=== PATIENT | male | born 1940 | race Caucasian/White ===

== ENCOUNTER 2016-10-31 14:17 | Emergency (ER) | payer OTHER ==
[~2016-10-31] VITALS: Ht 167.6 cm; Wt 72.6 kg
[~2016-10-31 14:17] MED LIST: ACET650T79; AMLO5TAB2; ASPI81CH43; FLUT250M9; HYDR-3678; METH2.5T3; OMEP20CA74; POTA10CA29; SIMV-8; TIOTCAP
[2016-10-31 15:33] LABS: Basophils # (auto) 0.1 uL; Basophils % (auto) 0.4 % (0.0-2.0); CONDITION Y; DEFINITIVE SEE PRINTOUT; Eosinophils # (auto) 0.1 uL; Eosinophils % (auto) 0.7 % (0.0-7.0); Hemoglobin 18.9 g/dL (13.5-17.5); Lymphocytes % (auto) 6.9 % (10.0-50.0); Mean Corpuscular Hemoglobin 34.1 pg (28.0-32.0); Mean Corpuscular Hgb Conc. 33.4 g/dL (32.0-36.0); Mean Corpuscular Volume 102.1 fL (80.0-100.0); Mean Platelet Volume 8.4 fL (7.4-10.4); Monocytes # (auto) 0.8 uL; Monocytes % (auto) 5.7 % (0.0-12.0); Neutrophils # (auto) 12.7 uL; Neutrophils % (auto) 86.3 % (37.0-80.0); Platelet Count (auto) 339 10^3/uL (140-450); Red Cell Distribution Width 15.1 % (11.6-16.0); SUSPECT SEE PRINTOUT; White Blood Cell 14.7 10^3/uL (4.4-10.8)
[2016-10-31 15:47] LABS: Hematocrit 56.6 % (41.0-53.0)
[2016-10-31 15:54] LABS: Albumin 3.5 g/dL (3.4-5.0); Alkaline Phosphatase 124 U/L (45-117); Anion Gap 7 (5-15); Aspartate Aminotransferase 47 U/L (15-37); BUN/Creatinine Ratio 23.9; Bilirubin, Total 1.2 mg/dL (0.2-1.0); Blood Urea Nitrogen 26 mg/dL (7-18); Calcium 9.6 mg/dL (8.5-10.1); Carbon Dioxide 26 mmol/L (21-32); Chloride 104 mmol/L (98-107); GFR African American 85 mL/min; GFR Non-African American 70 mL/min; Glucose 94 mg/dL (74-106); Potassium 3.5 mmol/L (3.5-5.1); Sodium 137 mmol/L (136-145); Total Protein 6.8 g/dL (6.4-8.2)
[2016-10-31 20:28] LABS: B-Type Natriuretic Peptide 27.58 pg/mL (0-100)
[2016-10-31 20:39] LABS: Temperature: 22.4 C (20.0-25.0)
[2016-10-31] MEDS ORDERED: ALBUTEROL SULF 2.5 MG/0.5ML(0.5%) NEB SOLN NEB ONE (22:00)
[2016-10-31] MEDS ORDERED: methylPREDNISolone SOD SUCC 125 MG/2 ML VL IV ONE (22:00)
[2016-10-31] MEDS ORDERED: IPRATROPIUM BROM 0.5 MG/2.5ML INH SOL NEB ONE (22:00)
[2016-10-31 22:59] VITALS: BP 137/98
== END 2016-10-31 23:02 | disposition home or self-care (01) ==
LOC: ER 14:17
DX: J44.1 Chronic obstructive pulmonary disease with (acute) exacerbation (principal); I12.9 Hypertensive chronic kidney disease with stage 1 through stage 4 chronic kidney disease, or unspecified chronic kidney disease; N18.9 Chronic kidney disease, unspecified; E78.5 Hyperlipidemia, unspecified; Z87.442 Personal history of urinary calculi
CPT/HCPCS: 36415; 71020; 80053; 83880; 84484; 85025; 93005; 94640; 96374; 99285; J2930

== ENCOUNTER 2018-09-22 22:49 | Emergency (ER) | payer OTHER ==
[~2018-09-22] VITALS: Ht 165.1 cm; Wt 68.0 kg
[~2018-09-22 22:49] MED LIST changes: +AMLO5TAB13; -AMLO5TAB2
[2018-09-22] MEDS ORDERED: ALBUTEROL SULF 2.5 MG/0.5ML(0.5%) NEB SOLN HHN ONE (23:30)
[2018-09-22] MEDS ORDERED: IPRATROPIUM BROM 0.5 MG/2.5ML INH SOL HHN ONE (23:30)
[2018-09-22] MEDS ORDERED: methylPREDNISolone SOD SUCC 125 MG/2 ML VL IV ONE (23:30)
[2018-09-22] MEDS ORDERED: PIPERACILLIN-TAZOB 3.375GM 100 ML IV ONE (23:30)
[2018-09-22 23:42] LABS: Hemoglobin 18.2 g/dL (13.5-17.5); Mean Corpuscular Volume 98.3 fL (80.0-100.0)
[2018-09-22 23:44] LABS: Hematocrit 55.7 % (41.0-53.0); Mean Corpuscular Hgb Conc. 32.6 g/dL (32.0-36.0); Platelet Count (auto) 441 10^3/uL (140-450); Red Blood Cells 5.67 10^6/uL (4.5-5.90); White Blood Cell 21.2 10^3/uL (4.4-10.8)
[2018-09-22 23:49] LABS: Band Neutrophils % (manual) 0; Basophils % (manual) 0 (0.0-2.0); Blast Cells 0; Eosinophils % (manual) 0 (0-7); Metamyelocytes % 0; Myelocytes % 0; Promyelocytes % 0; Reactive Lymphocytes 0
[2018-09-23 00:01] LABS: Albumin 3.8 g/dL (3.4-5.0); Anion Gap 10 (5-15); Blood Urea Nitrogen 38 mg/dL (7-18); Calcium 9.8 mg/dL (8.5-10.1); Carbon Dioxide 25 mmol/L (21-32); Chloride 105 mmol/L (98-107); Glucose 109 mg/dL (74-106); Magnesium 2.5 mg/dL (1.6-2.6); Potassium 4.9 mmol/L (3.5-5.1); Sodium 140 mmol/L (136-145)
[2018-09-23 00:03] LABS: Alanine Aminotransferase 87 U/L (16-61); Aspartate Aminotransferase 47 U/L (15-37); BUN/Creatinine Ratio 20.9; GFR African American 47 mL/min; GFR Non-African American 39 mL/min
[2018-09-23 00:08] LABS: Alkaline Phosphatase 117 U/L (45-117); Bilirubin, Total 0.5 mg/dL (0.2-1.0); Total Protein 8.1 g/dL (6.4-8.2)
[2018-09-23 00:20] LABS: Lymphocytes % (manual) 5 (10.0-50.0); Monocytes % (manual) 4 (0-12)
[2018-09-23] MEDS ORDERED: SODIUM CHLORIDE 0.9% 1,000 ML IV ONE (00:30)
[2018-09-23] MEDS ORDERED: ALBUTEROL SULF 2.5 MG/0.5ML(0.5%) NEB SOLN NEB ONE ×2 (02:00→07:00)
[2018-09-23] MEDS ORDERED: IPRATROPIUM BROM 0.5 MG/2.5ML INH SOL NEB ONE ×2 (02:00→07:00)
[2018-09-23 03:13] LABS: Urine Bacteria NONE SEEN /hpf (None Seen); Urine Blood Negative /uL (Negative); Urine Hyaline Cast FEW /lpf (0 - 2); Urine Specific Gravity 1.012 (1.001-1.035); Urine WBC <1 /hpf (0 - 3)
[2018-09-23] MEDS ORDERED: SODIUM CHLORIDE 0.9% 500 ML IV ONE (07:00)
[2018-09-23] MEDS ORDERED: LEVOFLOXACIN 500MG 100 ML IV ONE (07:00)
[2018-09-23] MEDS ORDERED: methylPREDNISolone SOD SUCC 125 MG/2 ML VL IV SCH (08:00)
[2018-09-23 08:22] VITALS: BP 139/90
== END 2018-09-23 08:23 | disposition home or self-care (01) ==
LOC: EDBD 22:49 → EDUNIT# 22:49 → ER 23:02
DX: J44.0 Chronic obstructive pulmonary disease with (acute) lower respiratory infection (principal); R91.1 Solitary pulmonary nodule; R06.03 Acute respiratory distress; I12.9 Hypertensive chronic kidney disease with stage 1 through stage 4 chronic kidney disease, or unspecified chronic kidney disease; N18.9 Chronic kidney disease, unspecified; E78.5 Hyperlipidemia, unspecified; Z87.442 Personal history of urinary calculi
CPT/HCPCS: 36415; 36600; 71045; 80053; 81001; 82805; 83735; 83880; 84484; 85007; 85027; 87040; 93005; 94640; 94761; 96365; 96366; 96367; 96375; 99285; J1956; J2543; J2930; J7030; J7040; J7611; J7644

== ENCOUNTER 2018-09-30 17:30 | Inpatient (IN) | payer OTHER ==
[~2018-09-30] VITALS: Ht 167.6 cm; Wt 73.0 kg
[~2018-09-30 17:30] MED LIST changes: -AMLO5TAB13; +AMLO5TAB15; -HYDR-3678; +HYDR-3679
[2018-09-30] MEDS ORDERED: ALBUTEROL SULF 2.5 MG/0.5ML(0.5%) NEB SOLN HHN ONE (18:15)
[2018-09-30] MEDS ORDERED: IPRATROPIUM BROM 0.5 MG/2.5ML INH SOL HHN ONE (18:15)
[2018-09-30] MEDS ORDERED: methylPREDNISolone SOD SUCC 125 MG/2 ML VL IV ONE (18:15)
[2018-09-30 18:48] LABS: Hematocrit 52.7 % (41.0-53.0); Hemoglobin 17.4 g/dL (13.5-17.5); Mean Corpuscular Hemoglobin 32.3 pg (28.0-32.0); Mean Corpuscular Volume 98.1 fL (80.0-100.0); Platelet Count (auto) 332 10^3/uL (140-450); Red Blood Cells 5.37 10^6/uL (4.5-5.90); Red Cell Distribution Width 18.9 % (11.8-14.3); White Blood Cell 16.5 10^3/uL (4.4-10.8)
[2018-09-30 18:53] LABS: Basophils % (manual) 0 (0.0-2.0); Blast Cells 0; Eosinophils % (manual) 0 (0-7); Metamyelocytes % 0; Myelocytes % 0; Promyelocytes % 0; Reactive Lymphocytes 0
[2018-09-30 19:06] LABS: Alanine Aminotransferase 98 U/L (16-61); Albumin 3.5 g/dL (3.4-5.0); Anion Gap 10 (5-15); Aspartate Aminotransferase 35 U/L (15-37); BUN/Creatinine Ratio 19.8; Blood Urea Nitrogen 26 mg/dL (7-18); Calcium 8.6 mg/dL (8.5-10.1); Carbon Dioxide 26 mmol/L (21-32); Chloride 106 mmol/L (98-107); GFR African American 68 mL/min; GFR Non-African American 56 mL/min; Glucose 122 mg/dL (74-106); Magnesium 2.5 mg/dL (1.6-2.6); Potassium 4.2 mmol/L (3.5-5.1); Sodium 142 mmol/L (136-145)
[2018-09-30 19:08] LABS: Lactic Acid w/Reflex 2.3 mmol/L (0.4-2.0)
[2018-09-30 19:11] LABS: Alkaline Phosphatase 93 U/L (45-117); Bilirubin, Total 0.9 mg/dL (0.2-1.0); Total Protein 6.8 g/dL (6.4-8.2)
[2018-09-30 19:42] VITALS: BP 132/87
[2018-09-30 20:04] VITALS: BP 132/87
[2018-09-30 20:29] LABS: Band Neutrophils % (manual) 2; Lymphocytes % (manual) 4 (10.0-50.0); Monocytes % (manual) 11 (0-12)
[2018-09-30] MEDS ORDERED: MORPHINE SULF INJ 2 MG/ML SYRINGE 1ML IV PRN (21:15)
[2018-09-30] MEDS ORDERED: ONDANSETRON HCL 4 MG/2 ML VIAL IV PRN (21:15)
[2018-09-30] MEDS ORDERED: NITROGLYCERIN 0.4 MG SL TAB SL PRN (21:15)
[2018-09-30] MEDS ORDERED: MORPHINE SULFATE 4 MG/ML SYR/VIAL IV PRN (21:15)
[2018-09-30] MEDS: ATORVASTATIN 20 MG TAB PO SCH (22:11)
[2018-09-30 22:18] VITALS: BP 139/81
[2018-09-30] MEDS: IPRATROPIUM BROM 0.5 MG/2.5ML INH SOL NEB SCH (22:18)
[2018-09-30] MEDS: ALBUTEROL SULF 2.5 MG/0.5ML(0.5%) NEB SOLN NEB SCH (22:18)
[2018-09-30 22:45] VITALS: BP 146/95
--- NOTE | 2018-09-30 22:45 | NUR ---
Telemetry admit from [facility] admitted to Telemetry unit. Patient oriented to SRIDHAR SMITH, primary RN, unit, room, bed, and unit policies regarding patient care and visiting hours. Patient now on continuous telemetry monitoring, tele box #39 and telemetry reading on arrival to unit is sinus tach 111. Patient placed on bipap machine by RT, weighed by bedscale and encouraged to call if they need something. at bedside. Bed locked in lowest position, side rails upx2, call light within reach. All questions and concerns addressed, patient verbalized understanding.
[2018-09-30] MEDS: methylPREDNISolone SOD SUCC 125 MG/2 ML VL IV SCH (23:58)
[2018-10-01] MEDS: IPRATROPIUM BROM 0.5 MG/2.5ML INH SOL NEB SCH ×6 (02:15→22:38)
[2018-10-01] MEDS: ALBUTEROL SULF 2.5 MG/0.5ML(0.5%) NEB SOLN NEB SCH ×6 (02:15→22:38)
[2018-10-01 05:00] VITALS: BP 130/73
[2018-10-01] MEDS: methylPREDNISolone SOD SUCC 125 MG/2 ML VL IV SCH ×4 (06:03→23:56)
[2018-10-01 06:33] LABS: Hemoglobin 16.3 g/dL (13.5-17.5); Mean Corpuscular Hemoglobin 32.1 pg (28.0-32.0); Mean Corpuscular Hgb Conc. 32.6 g/dL (32.0-36.0); Mean Corpuscular Volume 98.6 fL (80.0-100.0); Platelet Count (auto) 324 10^3/uL (140-450); Red Blood Cells 5.07 10^6/uL (4.5-5.90); Red Cell Distribution Width 18.1 % (11.8-14.3); White Blood Cell 14.1 10^3/uL (4.4-10.8)
[2018-10-01 06:39] LABS: Calcium 8.9 mg/dL (8.5-10.1); Potassium 4.2 mmol/L (3.5-5.1)
[2018-10-01 06:48] LABS: Basophils % (manual) 0 (0.0-2.0); Blast Cells 0; Eosinophils % (manual) 0 (0-7); Metamyelocytes % 0; Myelocytes % 0; Promyelocytes % 0; Reactive Lymphocytes 0
[2018-10-01 08:35] LABS: Band Neutrophils % (manual) 1; Lymphocytes % (manual) 3 (10.0-50.0); Monocytes % (manual) 1 (0-12)
[2018-10-01 09:00] VITALS: BP 117/71
[2018-10-01] MEDS: ENOXAPARIN SOD 40 MG/0.4 ML SYRINGE SC SCH (09:47)
[2018-10-01] MEDS: FAMOTIDINE 20 MG TAB PO SCH (09:47)
[2018-10-01] MEDS: amLODIPine BESYLATE 5 MG TAB PO SCH (09:47)
[2018-10-01] MEDS: AZITHROMYCIN 500MG/ 250ML 250 ML IV SCH (09:47)
[2018-10-01] MEDS: ASPirin 81 mg TAB PO SCH (09:48)
[2018-10-01 13:00] VITALS: BP 119/64
[2018-10-01 17:03] VITALS: BP 101/56
--- NOTE | 2018-10-01 19:15 | NUR ---
Opening Shift Note REPORT RECEIVED. Assumed care of patient. PATIENT IS AWAKE SITTING IN BED COMFORTABLY. PATIENT ON 3 L O2 VIA NASAL CANNULA. ALERT AND ORIENTATED X4. NO S/S OF DISTRESS OR SOB. PATIENT DENIES PAIN. INSTRUCTED TO CALL FOR ASSISTANCE PRN, CALL LIGHT LEFT WITHIN REACH. WILL CONTINUE TO MONITOR HOURLY AND PRN.
[2018-10-01 22:00] VITALS: BP 108/58
[2018-10-01] MEDS: ATORVASTATIN 20 MG TAB PO SCH (22:29)
[2018-10-01 22:45] VITALS: BP 101/56
[2018-10-02] MEDS: IPRATROPIUM BROM 0.5 MG/2.5ML INH SOL NEB SCH ×6 (02:53→22:21)
[2018-10-02] MEDS: ALBUTEROL SULF 2.5 MG/0.5ML(0.5%) NEB SOLN NEB SCH ×6 (02:54→22:21)
[2018-10-02 05:47] LABS: Basophils # (auto) 0 uL; Basophils % (auto) 0.3 % (0.0-2.0); Eosinophils # (auto) 0 uL; Hematocrit 44.1 % (41.0-53.0); Hemoglobin 14.5 g/dL (13.5-17.5); Lymphocytes # (auto) 0.2 uL; Lymphocytes % (auto) 1.2 % (10.0-50.0); Mean Corpuscular Hgb Conc. 32.8 g/dL (32.0-36.0); Mean Corpuscular Volume 97.6 fL (80.0-100.0); Monocytes # (auto) 0.7 uL; Monocytes % (auto) 3.7 % (0.0-12.0); Neutrophils # (auto) 16.9 uL; Neutrophils % (auto) 94.8 % (37.0-80.0); Nucleated Red Blood Cells % 0.2 %; Platelet Count (auto) 318 10^3/uL (140-450); Red Blood Cells 4.52 10^6/uL (4.5-5.90); Red Cell Distribution Width 18.2 % (11.8-14.3); White Blood Cell 17.8 10^3/uL (4.4-10.8)
[2018-10-02 06:00] VITALS: BP 108/61
[2018-10-02 06:01] LABS: Potassium 3.7 mmol/L (3.5-5.1)
[2018-10-02] MEDS: methylPREDNISolone SOD SUCC 125 MG/2 ML VL IV SCH ×3 (06:03→18:42)
[2018-10-02 06:06] LABS: BUN/Creatinine Ratio 28.1
--- NOTE | 2018-10-02 07:05 | NUR ---
CLOSING NOTE PATIENT RESTING COMFORTABLY IN BED, NO S/S OF SOB OR DISTRESS NOTED. WILL ENDORSE CARE TO DAY SHIFT RN.
--- NOTE | 2018-10-02 08:15 | NUR ---
SPOKE WITH MD LIGHT PER MD, PATIENT NEEDS TO BE CLEARED BY PULMONOLOGY BEFORE DISCHARGE, WILL OBTAIN CLEARANCE. INFORMED MD OF PATIENT WISHES TO STAY IN THE HOSPITAL 1 OR 2 MORE NIGHTS. PATIENT STATES HE IS UNABLE TO AMBULATE WITHOUT BECOMING SEVERELY SHORT OF BREATH. INFORMED MD PATIENT APPEARS TO BE VERY SHORT OF BREATH AT REST. MD STATES PULMONOLOGY NEEDS TO SEE PATIENT TODAY. PER MD PATIENT NEEDS AN ABG TODAY PER ORDERS. WILL INFORM RESPIRATORY. NO NEW ORDERS. WILL CONTINUE CARE.
--- NOTE | 2018-10-02 08:30 | NUR ---
SPOKE WITH RESPIRATORY, INFORMED OF MD ORDERS FOR ABG TODAY. WILL CONTINUE CARE.
[2018-10-02 09:00] VITALS: BP 123/68
[2018-10-02] MEDS: ENOXAPARIN SOD 40 MG/0.4 ML SYRINGE SC SCH (10:16)
[2018-10-02] MEDS: ASPirin 81 mg TAB PO SCH (10:17)
[2018-10-02] MEDS: FAMOTIDINE 20 MG TAB PO SCH (10:17)
[2018-10-02] MEDS: AZITHROMYCIN 500MG/ 250ML 250 ML IV SCH (10:17)
[2018-10-02] MEDS: amLODIPine BESYLATE 5 MG TAB PO SCH (10:17)
--- NOTE | 2018-10-02 10:30 | NUR ---
MD LIGHT AT BEDSIDE. NO NEW ORDERS. WILL CONTINUE CARE.
[2018-10-02 13:00] VITALS: BP 128/74
--- NOTE | 2018-10-02 13:06 | NUR ---
faxed ss order to [facility] concerning f/u appt for [facility] to arrange
--- NOTE | 2018-10-02 13:41 | NUR ---
ss order faxed to [facility] for outpt f/u
[2018-10-02 17:00] VITALS: BP 115/70
--- NOTE | 2018-10-02 19:20 | NUR ---
Opening Shift Note Assumed care of patient, awake and alert. No S/S of distress/SOB or pain. Instructed on POC and to call for assist as needed. Pt is currently laying in bed with the rails up x2. The bed is locked in the lowest position and the call light is within reach. The dressing on the right groin is clean dry and intact. Will continue to monitor. Addendum: 10/03/18 at 0129 by BRIGITTE HALL RN Wrong Pt Addendum: 10/03/18 at 0130 by BRIGITTE HALL RN No Dressing to right groin
--- NOTE | 2018-10-02 19:33 | NUR ---
CLOSING NOTE ENDORSED CARE TO GLASS LINED TANK REPAIRER RN. BED IN LOW LOCK POSITION, CALL LIGHT IN REACH. NO S/S OF DISTRESS.
[2018-10-02 21:49] VITALS: BP 129/76
[2018-10-02] MEDS: ATORVASTATIN 20 MG TAB PO SCH (22:20)
[2018-10-03] MEDS: methylPREDNISolone SOD SUCC 125 MG/2 ML VL IV SCH ×5 (00:04→23:57)
[2018-10-03] MEDS: ALBUTEROL SULF 2.5 MG/0.5ML(0.5%) NEB SOLN NEB SCH ×6 (02:00→22:19)
[2018-10-03] MEDS: IPRATROPIUM BROM 0.5 MG/2.5ML INH SOL NEB SCH ×6 (02:00→22:20)
[2018-10-03 05:00] VITALS: BP 98/54
--- NOTE | 2018-10-03 06:25 | NUR ---
order reviewed for bipap therapy. bipap at bedside. pt denies sob, pt aware to have rt paged if bipap is indicated.. pt on 2lnc, spo2 97%.
[2018-10-03 06:55] LABS: Basophils # (auto) 0 uL; Basophils % (auto) 0.1 % (0.0-2.0); Eosinophils # (auto) 0 uL; Hematocrit 43.7 % (41.0-53.0); Hemoglobin 14.3 g/dL (13.5-17.5); Lymphocytes # (auto) 0.3 uL; Lymphocytes % (auto) 1.7 % (10.0-50.0); Mean Corpuscular Hemoglobin 31.7 pg (28.0-32.0); Mean Corpuscular Hgb Conc. 32.8 g/dL (32.0-36.0); Mean Corpuscular Volume 96.9 fL (80.0-100.0); Monocytes # (auto) 0.5 uL; Monocytes % (auto) 2.6 % (0.0-12.0); Neutrophils # (auto) 19.3 uL; Neutrophils % (auto) 95.6 % (37.0-80.0); Platelet Count (auto) 335 10^3/uL (140-450); Red Blood Cells 4.51 10^6/uL (4.5-5.90); Red Cell Distribution Width 18.5 % (11.8-14.3); White Blood Cell 20.2 10^3/uL (4.4-10.8)
[2018-10-03 07:14] LABS: BUN/Creatinine Ratio 28.1; Potassium 3.9 mmol/L (3.5-5.1)
[2018-10-03 08:00] VITALS: BP 128/79
[2018-10-03] MEDS: ENOXAPARIN SOD 40 MG/0.4 ML SYRINGE SC SCH (10:35)
[2018-10-03] MEDS: AZITHROMYCIN 500MG/ 250ML 250 ML IV SCH (10:35)
[2018-10-03] MEDS: ASPirin 81 mg TAB PO SCH (10:35)
[2018-10-03] MEDS: amLODIPine BESYLATE 5 MG TAB PO SCH (10:36)
[2018-10-03] MEDS: FAMOTIDINE 20 MG TAB PO SCH (10:37)
[2018-10-03 12:00] VITALS: BP 127/77
[2018-10-03 17:00] VITALS: BP 124/66
--- NOTE | 2018-10-03 19:18 | NUR ---
CLOSING NOTE ENDORSED CARE TO CLINICAL DOCUMENTATION CLERK RN. PATIENT IN BED LOW LOCK POSITION, CALL LIGHT IN REACH. NO S/S OF DISTRESS.
[2018-10-03] MEDS: ATORVASTATIN 20 MG TAB PO SCH (20:57)
[2018-10-03 22:00] VITALS: BP 146/84
[2018-10-04] VITALS (7 sets, daily range): BP systolic 116–150; BP diastolic 71–90
[2018-10-04] MEDS: ALBUTEROL SULF 2.5 MG/0.5ML(0.5%) NEB SOLN NEB SCH ×6 (02:19→22:42)
[2018-10-04] MEDS: IPRATROPIUM BROM 0.5 MG/2.5ML INH SOL NEB SCH ×6 (02:20→22:42)
[2018-10-04] MEDS: methylPREDNISolone SOD SUCC 125 MG/2 ML VL IV SCH ×3 (05:34→17:40)
[2018-10-04] MEDS: AZITHROMYCIN 500MG/ 250ML 250 ML IV SCH (10:11)
[2018-10-04] MEDS: amLODIPine BESYLATE 5 MG TAB PO SCH (10:12)
[2018-10-04] MEDS: ENOXAPARIN SOD 40 MG/0.4 ML SYRINGE SC SCH (10:13)
[2018-10-04] MEDS: FAMOTIDINE 20 MG TAB PO SCH (10:13)
[2018-10-04] MEDS: ASPirin 81 mg TAB PO SCH (10:13)
--- NOTE | 2018-10-04 10:20 | NUR ---
PT IS SET TO DISCHARGE TODAY. PT REPORTS PT IS ALREADY SET UP WITH HOME HEALTH, RECEIVED IN REPORT [facility]. CALLED PBX AND PAGED FOOD ASSEMBLER KITCHEN TO CLARIFY.
--- NOTE | 2018-10-04 10:23 | NUR ---
PT REPORTS SG IS APART OF [facility].
--- NOTE | 2018-10-04 10:37 | NUR ---
SPOKE WITH MATI, PT IS CLEARED TO DISCHARGE FROM [facility].
--- NOTE | 2018-10-04 10:39 | NUR ---
o/c note per Gabrielle Oliver [facility] accepted pt and care will start 24 - 48 hrs post d/c
--- NOTE | 2018-10-04 10:49 | NUR ---
PT EXPRESSES CONCERN, SHE BELIEVES PT IS NOT READY TO BE DISCHARGED SHE REPORTS PT REMAINS SOB AND HAS DIFFICULTY AMBULATING. PT IS ON 4 L NC AND REPORTS BEING SOB, 02 SAT 98.
--- NOTE | 2018-10-04 10:58 | NUR ---
CALLED DR LIGHT AND REPORTED WIFES CONCERN. REPORTS TO KEEP PT ONE MORE DAY AND CHANGE DISCHARGE ORDER FOR TOMORROW. MD REPORTS TO EDUCATE PT THAT HE WILL REMAIN SOB DUE TO HIS END STAGE LUNG DISEASE AND TO REASSURE PT THAT HIS OXYGEN LEVELS HAVE IMPROVED. WILL EDUCATE PT AND .
--- NOTE | 2018-10-04 11:38 | NUR ---
Nutrition Assessment Notes please see attached link for complete assessment. Est. Needs BW [id number] kcal (23-25 kcal/kgBW), 73-80 gms pro (1.0-1.1 gms/kgBW). Will continue to monitor pertinent labs and reassess nutrient need prn Addendum: 10/04/18 at [address] Amended: Links added.
--- NOTE | 2018-10-04 12:00 | NUR ---
Pt reports iv is leaking. Assessed iv site, minimal blood and fluid leaking from iv site. Pt reports no pain at site. iv dc'd and pressure dressing applied. Site cleaned, will attempt new iv.
--- NOTE | 2018-10-04 14:06 | NUR ---
NEW IV INSERTED LFA 22 GAUGE USING STERILE TECHNIQUE. PT TOLERATED PROCEDURE WELL, WILL CONTINUE TO MONITOR.
--- NOTE | 2018-10-04 18:07 | NUR ---
PT REPORTS HIS IV SITE IS SWOLLEN. ASSESSED IV SITE, SWELLING AND ERYTHEMA NOTED AT SITE. IV DISCONTINUED AND PRESSURE DRESSING APPLIED. WILL CONTINUE TO MONITOR. Addendum: 10/04/18 at 1929 by MEKHI COOPER RN Attempted to run last 50 mls of antibiotc left from when iv went bad the first time.
--- NOTE | 2018-10-04 19:03 | NUR ---
PT PREVIOUS IV SITE STILL SWOLLEN WITH ERYTHEMA AND NOW ECCHYMOSIS EXTENDING FROM SITE TO UPPER AND LOWER ARM. ASKED PT IF IT WAS PAINFUL, PT REPORTS, "IT'S A LITTLE TENDER." PT REPORTS, "BUT I BRUISE EASY." PT REPORTS HE DOES NOT WISH TO HAVE ANOTHER IV PUT IN HE IS DISCHARGING TOMORROW, NIGHT NURSE AWARE.
[2018-10-04] MEDS: ATORVASTATIN 20 MG TAB PO SCH (21:00)
--- NOTE | 2018-10-04 21:05 | NUR ---
IV insertion IV access obtained, via clean sterile technique by inserting gauge # 20 catheter at right AC. IV secured properly. No trauma to site. Patient tolerated well. NOTE: Tried IV insertion to right lower arm, unable to and right lower arm bruised/ecchymotic. Denies pain or discomfort.
[2018-10-05] MEDS: methylPREDNISolone SOD SUCC 125 MG/2 ML VL IV SCH ×3 (00:43→11:18)
[2018-10-05] MEDS: ALBUTEROL SULF 2.5 MG/0.5ML(0.5%) NEB SOLN NEB SCH ×3 (01:31→09:54)
[2018-10-05] MEDS: IPRATROPIUM BROM 0.5 MG/2.5ML INH SOL NEB SCH ×3 (01:31→09:54)
[2018-10-05 05:39] VITALS: BP 128/80
--- NOTE | 2018-10-05 07:20 | NUR ---
Opening Shift Note Received report from Pamela RN. Assumed care of patient, awake and alert. No S/S of distress or pain. Reported improved SOB and patient is ready to go home today, waiting for his . Instructed on POC and to call for assist PRN, will continue to monitor for changes Q1hr and PRN.
[2018-10-05 08:00] VITALS: BP 148/98
[2018-10-05] MEDS: AZITHROMYCIN 500MG/ 250ML 250 ML IV SCH (09:11)
[2018-10-05] MEDS: FAMOTIDINE 20 MG TAB PO SCH (09:12)
[2018-10-05] MEDS: amLODIPine BESYLATE 5 MG TAB PO SCH (09:12)
[2018-10-05] MEDS: ASPirin 81 mg TAB PO SCH (09:12)
[2018-10-05] MEDS: ENOXAPARIN SOD 40 MG/0.4 ML SYRINGE SC SCH (09:12)
[2018-10-05 09:17] VITALS: BP 148/98
[2018-10-05 13:06] VITALS: BP 143/87
--- NOTE | 2018-10-05 14:51 | NUR ---
Discharge instructions given as ordered. Encourage to follow up with PMD as instructed. All questions and concerns addressed. Patient verbalized understanding. Medication reconciliation form completed and copy given to patient. IV removed with catheter intact, pressure dressing applied. Telemetry unit returned to [facility]. Patient taken to vehicle via wheelchair with portable oxygen with all personal belongings, accompanied by staff and . No distress noted at time of departure.
== END 2018-10-05 14:51 | disposition home health service (06) | DRG 189 ==
LOC: ER 17:37 → TELE 21:22 → TELE-WESTW 22:48
PROVIDERS: ADMIT Hospitalist; ATTEND Hospitalist
PROC: 5A09357 Assistance with Respiratory Ventilation, Less than 24 Consecutive Hours, Continuous Positive Airway Pressure (ICD-10-PCS; principal; 2018-09-30)
PROC: 5A09357 Assistance with Respiratory Ventilation, Less than 24 Consecutive Hours, Continuous Positive Airway Pressure (ICD-10-PCS; 2018-10-01)
PROC: 5A09357 Assistance with Respiratory Ventilation, Less than 24 Consecutive Hours, Continuous Positive Airway Pressure (ICD-10-PCS; 2018-10-04)
PROC: 5A09357 Assistance with Respiratory Ventilation, Less than 24 Consecutive Hours, Continuous Positive Airway Pressure (ICD-10-PCS; 2018-10-05)
DX: J96.21 Acute and chronic respiratory failure with hypoxia (principal); J44.1 Chronic obstructive pulmonary disease with (acute) exacerbation; J61 Pneumoconiosis due to asbestos and other mineral fibers; J43.9 Emphysema, unspecified; Z99.81 Dependence on supplemental oxygen; I10 Essential (primary) hypertension; E78.5 Hyperlipidemia, unspecified; M06.9 Rheumatoid arthritis, unspecified; Z85.46 Personal history of malignant neoplasm of prostate; Z87.442 Personal history of urinary calculi; Z87.891 Personal history of nicotine dependence; Z90.81 Acquired absence of spleen; Z98.42 Cataract extraction status, left eye
CPT/HCPCS: 36415; 36600; 71045; 80048; 80053; 82805; 83605; 83735; 83880; 84484; 85007; 85025; 85027; 87040; 93005; 94640; 94644; 94660; 94761; 94762; 96365; 96375; G0378

== ENCOUNTER 2018-12-11 15:00 | Inpatient (IN) | payer OTHER ==
[~2018-12-11] VITALS: Ht 167.6 cm; Wt 79.7 kg
[2018-12-11] MEDS ORDERED: SODIUM CHLORIDE 0.9% 500 ML IV ONE ×2 (15:19→17:43)
[2018-12-11] MEDS ORDERED: ALBUTEROL SULF 2.5 MG/0.5ML(0.5%) NEB SOLN HHN ONE ×2 (15:30→19:00)
[2018-12-11] MEDS ORDERED: methylPREDNISolone SOD SUCC 125 MG/2 ML VL IV ONE (15:30)
[2018-12-11] MEDS ORDERED: LEVOFLOXACIN 500MG 100 ML IV ONE ×2 (15:30)
[2018-12-11] MEDS ORDERED: IPRATROPIUM BROM 0.5 MG/2.5ML INH SOL HHN ONE (15:30)
[2018-12-11] MEDS ORDERED: IPRATROPIUM BROM 0.5 MG/2.5ML INH SOL ONE ×2 (15:34→16:36)
[2018-12-11 15:47] LABS: Hemoglobin 17.6 g/dL (13.5-17.5); Mean Corpuscular Hemoglobin 33.4 pg (28.0-32.0); Mean Corpuscular Hgb Conc. 33.8 g/dL (32.0-36.0); Mean Corpuscular Volume 98.7 fL (80.0-100.0); Platelet Count (auto) 235 10^3/uL (140-450); Red Blood Cells 5.27 10^6/uL (4.5-5.90); White Blood Cell 18.4 10^3/uL (4.4-10.8)
[2018-12-11 16:01] LABS: Albumin 2.9 g/dL (3.4-5.0); BUN/Creatinine Ratio 23.9; Calcium 9.5 mg/dL (8.5-10.1)
[2018-12-11 16:06] LABS: Bilirubin, Total 0.8 mg/dL (0.2-1.0); Total Protein 6.1 g/dL (6.4-8.2)
[2018-12-11 16:09] LABS: Band Neutrophils % (manual) 0; Basophils % (manual) 0 (0.0-2.0); Blast Cells 0; Eosinophils % (manual) 0 (0-7); Metamyelocytes % 0; Myelocytes % 0; Promyelocytes % 0; Reactive Lymphocytes 0
[2018-12-11 16:15] LABS: Lactic Acid w/Reflex 3.3 mmol/L (0.4-2.0)
[2018-12-11] MEDS ORDERED: ALBUTEROL SULF 2.5 MG/0.5ML(0.5%) NEB SOLN ONE (16:36)
[2018-12-11] MEDS ORDERED: SODIUM CHLORIDE 0.9% 1,000 ML IV ONE (16:43)
[2018-12-11] MEDS ORDERED: InsuLIN REG 1unit/0.01ml Soln (100units/ml) SC ONE (16:45)
[2018-12-11 16:47] LABS: INR 0.95 (0.9-1.15); Partial Thromboplastin Time 21.2 sec (23.64-32.05)
[2018-12-11 17:03] LABS: Lymphocytes % (manual) 5 (10.0-50.0); Monocytes % (manual) 13 (0-12)
[2018-12-11] MEDS ORDERED: cefTRIAXone 1GM/50ML D5W 50 ML IV ONE (17:15)
[2018-12-11] MEDS ORDERED: IOHEXOL 350 MG/ML 100ML IJ ONE ×2 (17:29→17:32)
[2018-12-11 19:16] VITALS: BP 121/87
[2018-12-11 19:53] VITALS: BP 118/93
[2018-12-11 20:17] VITALS: BP 126/79
[2018-12-11 22:19] VITALS: BP 125/69
[2018-12-12 00:09] VITALS: BP 104/73
[2018-12-12 01:15] LABS: Lactic Acid w/Reflex 4.3 mmol/L (0.4-2.0)
[2018-12-12 02:23] VITALS: BP 109/75
[2018-12-12] MEDS ORDERED: ONDANSETRON HCL 4 MG/2 ML VIAL IV PRN (02:30)
[2018-12-12] MEDS ORDERED: NITROGLYCERIN 0.4 MG SL TAB SL PRN (02:30)
[2018-12-12] MEDS ORDERED: ACETAMINOPHEN 325 MG TAB PO PRN (02:30)
[2018-12-12] MEDS ORDERED: MORPHINE SULF INJ 2 MG/ML SYRINGE 1ML IV PRN (02:30)
[2018-12-12] MEDS ORDERED: MORPHINE SULFATE 4 MG/ML SYR/VIAL IV PRN (02:30)
[2018-12-12] MEDS ORDERED: DEXTROSE (50%) 50ML SYRG IV ONE (02:45)
[2018-12-12] MEDS: SODIUM CHLORIDE 0.9% 1,000 ML IV SCH ×2 (03:13→16:33)
[2018-12-12 05:28] LABS: Hematocrit 45.1 % (41.0-53.0); Hemoglobin 15.3 g/dL (13.5-17.5); Mean Corpuscular Hemoglobin 33.5 pg (28.0-32.0); Mean Corpuscular Hgb Conc. 33.8 g/dL (32.0-36.0); Mean Corpuscular Volume 98.9 fL (80.0-100.0); Platelet Count (auto) 210 10^3/uL (140-450); Red Blood Cells 4.56 10^6/uL (4.5-5.90); White Blood Cell 17.2 10^3/uL (4.4-10.8)
[2018-12-12 05:45] LABS: BUN/Creatinine Ratio 24.2; Calcium 8.7 mg/dL (8.5-10.1); Potassium 4.1 mmol/L (3.5-5.1)
[2018-12-12] MEDS: ALBUTEROL SULF 2.5 MG/0.5ML(0.5%) NEB SOLN NEB SCH ×5 (06:04→22:12)
[2018-12-12] MEDS: IPRATROPIUM BROM 0.5 MG/2.5ML INH SOL NEB SCH ×5 (06:04→22:12)
[2018-12-12] MEDS: methylPREDNISolone SOD SUCC 125 MG/2 ML VL IV SCH ×3 (06:05→18:05)
[2018-12-12 06:08] LABS: Basophils % (manual) 0 (0.0-2.0); Blast Cells 0; Eosinophils % (manual) 0 (0-7); Metamyelocytes % 0; Myelocytes % 0; Promyelocytes % 0; Reactive Lymphocytes 0
[2018-12-12 06:53] LABS: Band Neutrophils % (manual) 7
[2018-12-12 06:54] LABS: Lymphocytes % (manual) 5 (10.0-50.0)
[2018-12-12 06:55] LABS: Monocytes % (manual) 5 (0-12)
[2018-12-12] MEDS ORDERED: InsuLIN REG 1unit/0.01ml Soln (100units/ml) SC ONE (07:00)
[2018-12-12] MEDS ORDERED: ACCU-CHEK COMFORT CURVE STRIP VI ONE (07:00)
[2018-12-12] MEDS: cefTRIAXone 1GM/50ML D5W 50 ML IV SCH (08:31)
[2018-12-12] MEDS: AZITHROMYCIN 500MG/ 250ML 250 ML IV SCH (09:51)
[2018-12-12] MEDS: ASPirin 81 mg TAB PO SCH (09:51)
[2018-12-12] MEDS: ENOXAPARIN SOD 40 MG/0.4 ML SYRINGE SC SCH (09:52)
[2018-12-12] MEDS: FAMOTIDINE 20 MG TAB PO SCH (09:52)
[2018-12-12] MEDS: amLODIPine BESYLATE 5 MG TAB PO SCH (09:52)
--- NOTE | 2018-12-12 16:25 | NUR ---
BIPAP Patient on BIPAP, transferred from room 222A to room 203.
[2018-12-12 17:00] VITALS: BP 129/91
--- NOTE | 2018-12-12 17:00 | NUR ---
Telemetry admit from [facility]NS[facility] admitted to Telemetry unit after SBAR received. Patient oriented to primary RN, unit, room, bed, and unit policies regarding patient care and visiting hours. Patient now on continuous telemetry monitoring, tele box # 26. Patient placed on bedside oxygen, weighed by bedscale and encouraged to call if they need something. All questions and concerns addressed, patient verbalized understanding. Spouse at bedside. Addendum: 12/12/18 at 1714 by ALBERT SORENSEN RN Patient arrived on unit at 1500.
[2018-12-12 19:11] LABS: Urine WBC None Seen /hpf (0 - 3)
[2018-12-12 19:31] LABS: Urine Bacteria NONE SEEN /hpf (None Seen); Urine Blood Negative /uL (Negative); Urine Specific Gravity 1.019 (1.001-1.035)
--- NOTE | 2018-12-12 20:20 | NUR ---
Opening Shift Note Assumed care of patient, awake and alert. No S/S of distress/SOB or pain. Patient is now back on bipap by RT, tolerating well. Instructed on POC and to call for assist PRN, will continue to monitor for changes Q1hr and PRN.
[2018-12-12 21:31] VITALS: BP 129/85
[2018-12-13] MEDS: methylPREDNISolone SOD SUCC 125 MG/2 ML VL IV SCH ×4 (00:13→17:53)
[2018-12-13] MEDS: SODIUM CHLORIDE 0.9% 1,000 ML IV SCH ×2 (00:16→17:54)
[2018-12-13] MEDS: ALBUTEROL SULF 2.5 MG/0.5ML(0.5%) NEB SOLN NEB SCH ×6 (02:19→21:46)
[2018-12-13] MEDS: IPRATROPIUM BROM 0.5 MG/2.5ML INH SOL NEB SCH ×6 (02:19→21:46)
[2018-12-13 04:33] VITALS: BP 121/82
[2018-12-13 05:56] LABS: Platelet Count (auto) 204 10^3/uL (140-450)
[2018-12-13 05:58] LABS: Hematocrit 42.7 % (41.0-53.0); Hemoglobin 14.6 g/dL (13.5-17.5); Mean Corpuscular Hemoglobin 33.9 pg (28.0-32.0); Mean Corpuscular Hgb Conc. 34.1 g/dL (32.0-36.0); Mean Corpuscular Volume 99.3 fL (80.0-100.0); Red Cell Distribution Width 19.6 % (11.8-14.3); White Blood Cell 18.8 10^3/uL (4.4-10.8)
[2018-12-13 06:03] LABS: Basophils % (manual) 0 (0.0-2.0); Blast Cells 0; Eosinophils % (manual) 0 (0-7); Metamyelocytes % 0; Myelocytes % 0; Promyelocytes % 0; Reactive Lymphocytes 0
[2018-12-13 06:14] LABS: BUN/Creatinine Ratio 24.3; Potassium 4.4 mmol/L (3.5-5.1)
[2018-12-13 06:21] LABS: Band Neutrophils % (manual) 5; Lymphocytes % (manual) 3 (10.0-50.0); Monocytes % (manual) 1 (0-12)
--- NOTE | 2018-12-13 07:30 | NUR ---
Opening Shift Note Assumed care of patient, awake and alert. No S/S of distress/SOB or pain. Instructed on POC and to call for assist PRN, will continue to monitor for changes Q1hr and PRN.
[2018-12-13] MEDS ORDERED: DEXTROSE (50%) 50ML SYRG IV PRN (08:30)
[2018-12-13 08:46] VITALS: BP 131/75
[2018-12-13] MEDS: cefTRIAXone 1GM/50ML D5W 50 ML IV SCH (09:28)
[2018-12-13] MEDS: amLODIPine BESYLATE 5 MG TAB PO SCH (09:29)
[2018-12-13] MEDS: FAMOTIDINE 20 MG TAB PO SCH (09:29)
[2018-12-13] MEDS: ASPirin 81 mg TAB PO SCH (09:29)
[2018-12-13] MEDS: AZITHROMYCIN 500MG/ 250ML 250 ML IV SCH (09:29)
[2018-12-13] MEDS: ENOXAPARIN SOD 40 MG/0.4 ML SYRINGE SC SCH (09:29)
--- NOTE | 2018-12-13 10:17 | NUR ---
Respiratory note: PT IS OFF BIPAP PER ORDERS. PT IS ON 3L/M NASAL CANNULA POX IS 98%.
[2018-12-13] MEDS: InsuLIN REG 1unit/0.01ml Soln (100units/ml) SC SCH ×3 (12:15→22:10)
[2018-12-13] MEDS: ACCU-CHEK COMFORT CURVE STRIP VI SCH ×3 (12:15→21:35)
[2018-12-13 12:36] VITALS: BP 132/75
[2018-12-13 16:13] VITALS: BP 117/66
[2018-12-13 22:00] VITALS: BP 106/68
[2018-12-14] VITALS (7 sets, daily range): BP systolic 106–167; BP diastolic 53–97
[2018-12-14] MEDS: methylPREDNISolone SOD SUCC 125 MG/2 ML VL IV SCH ×5 (00:04→23:44)
[2018-12-14] MEDS: IPRATROPIUM BROM 0.5 MG/2.5ML INH SOL NEB SCH ×6 (02:05→22:11)
[2018-12-14] MEDS: ALBUTEROL SULF 2.5 MG/0.5ML(0.5%) NEB SOLN NEB SCH ×6 (02:05→22:11)
[2018-12-14 05:12] LABS: Hematocrit 40.9 % (41.0-53.0); Hemoglobin 13.9 g/dL (13.5-17.5); Mean Corpuscular Hemoglobin 33.5 pg (28.0-32.0); Mean Corpuscular Volume 98.6 fL (80.0-100.0); Platelet Count (auto) 201 10^3/uL (140-450); Red Blood Cells 4.15 10^6/uL (4.5-5.90); White Blood Cell 18.8 10^3/uL (4.4-10.8)
[2018-12-14 05:24] LABS: Basophils % (manual) 0 (0.0-2.0); Blast Cells 0; Eosinophils % (manual) 0 (0-7); Metamyelocytes % 0; Myelocytes % 0; Promyelocytes % 0; Reactive Lymphocytes 0
[2018-12-14 05:26] LABS: BUN/Creatinine Ratio 34.5; Calcium 7.9 mg/dL (8.5-10.1); Potassium 3.6 mmol/L (3.5-5.1)
[2018-12-14 05:30] LABS: Lactic Acid w/Reflex 3.1 mmol/L (0.4-2.0)
[2018-12-14] MEDS: ACCU-CHEK COMFORT CURVE STRIP VI SCH ×4 (05:34→21:06)
[2018-12-14 06:10] LABS: Band Neutrophils % (manual) 1; Lymphocytes % (manual) 1 (10.0-50.0); Monocytes % (manual) 2 (0-12)
[2018-12-14] MEDS: InsuLIN REG 1unit/0.01ml Soln (100units/ml) SC SCH ×4 (06:38→21:06)
[2018-12-14] MEDS: SODIUM CHLORIDE 0.9% 1,000 ML IV SCH ×2 (08:10→21:09)
[2018-12-14] MEDS: cefTRIAXone 1GM/50ML D5W 50 ML IV SCH (09:19)
[2018-12-14] MEDS: ASPirin 81 mg TAB PO SCH (09:20)
[2018-12-14] MEDS: ENOXAPARIN SOD 40 MG/0.4 ML SYRINGE SC SCH (09:20)
[2018-12-14] MEDS: FAMOTIDINE 20 MG TAB PO SCH (09:20)
[2018-12-14] MEDS: AZITHROMYCIN 500MG/ 250ML 250 ML IV SCH (09:20)
[2018-12-14] MEDS: amLODIPine BESYLATE 5 MG TAB PO SCH (09:21)
[2018-12-14] MEDS ORDERED: CLINDAMYCIN HCL 150 MG CAP PO ONE (10:45)
[2018-12-14] MEDS ORDERED: DOXYCYCLINE 100 MG TAB/CAP PO ONE (11:00)
--- NOTE | 2018-12-14 14:06 | NUR ---
IV insertion IV access obtained, via clean sterile technique by inserting 22 gauge catheter at after attempt(s). IV secured properly. No trauma to site. Patient tolerated well.
[2018-12-14] MEDS: ACETYLCYSTEINE 10 %(100MG/ML) SOL 4ML NEB SCH ×2 (18:24→22:11)
--- NOTE | 2018-12-14 20:46 | NUR ---
Opening Shift Note Assumed care of patient, awake and alert, denies any pain, still short of breath on exertion, on 3L O2 with good saturation, bipap PRN. Instructed on POC and to call for assist PRN, will continue to monitor for changes Q1hr and PRN.
[2018-12-14] MEDS: DOXYCYCLINE 100 MG TAB/CAP PO SCH (21:05)
[2018-12-14] MEDS: BACLOFEN 10 MG TAB PO PRN (21:06)
[2018-12-14] MEDS ORDERED: CLINDAMYCIN HCL 150 MG CAP PO SCH (22:00)
[2018-12-15] MEDS: IPRATROPIUM BROM 0.5 MG/2.5ML INH SOL NEB SCH ×6 (02:30→21:59)
[2018-12-15] MEDS: ALBUTEROL SULF 2.5 MG/0.5ML(0.5%) NEB SOLN NEB SCH ×6 (02:30→21:59)
[2018-12-15 04:21] VITALS: BP 121/71
[2018-12-15] MEDS: ACETYLCYSTEINE 10 %(100MG/ML) SOL 4ML NEB SCH ×3 (05:33→18:55)
[2018-12-15 06:00] LABS: Hematocrit 42.2 % (41.0-53.0); Hemoglobin 14.4 g/dL (13.5-17.5); Mean Corpuscular Hgb Conc. 34.1 g/dL (32.0-36.0); Mean Corpuscular Volume 99.5 fL (80.0-100.0); Platelet Count (auto) 207 10^3/uL (140-450); Red Blood Cells 4.24 10^6/uL (4.5-5.90); Red Cell Distribution Width 19.3 % (11.8-14.3); White Blood Cell 16.7 10^3/uL (4.4-10.8)
[2018-12-15 06:12] LABS: BUN/Creatinine Ratio 34.7; Calcium 8.1 mg/dL (8.5-10.1); Potassium 3.7 mmol/L (3.5-5.1)
[2018-12-15 06:13] LABS: Basophils % (manual) 0 (0.0-2.0); Blast Cells 0; Eosinophils % (manual) 0 (0-7); Myelocytes % 0; Promyelocytes % 0; Reactive Lymphocytes 0
[2018-12-15] MEDS: ACCU-CHEK COMFORT CURVE STRIP VI SCH ×4 (06:26→21:00)
[2018-12-15] MEDS: methylPREDNISolone SOD SUCC 125 MG/2 ML VL IV SCH ×3 (06:26→18:16)
[2018-12-15] MEDS: InsuLIN REG 1unit/0.01ml Soln (100units/ml) SC SCH ×4 (06:34→21:03)
--- NOTE | 2018-12-15 07:12 | NUR ---
Respiratory note: PT TAKEN OFF BIPAP AND PLACED ON 2 L NC. NO SIGNS OR SYMPTOMS OF RESPIRATORY DISTRESS NOTED. WILL CONTINUE TO MONITOR ORDERED.
--- NOTE | 2018-12-15 07:30 | NUR ---
Opening Shift Note Assumed care of patient, awake and alert, oriented x 4 and verbally responsive. Patient still SOB, when he ambulates, o 2 sat 95-99 % with 2 L of NC. Skin is warm and dry to touch, no s/s of hyperglycemia or hypoglycemia noted. Instructed on POC and to call for assist PRN, will continue to monitor for changes Q1hr and PRN.
[2018-12-15 08:30] VITALS: BP 133/79
--- NOTE | 2018-12-15 09:07 | NUR ---
Dr. Florentino at bedside.
[2018-12-15] MEDS: ASPirin 81 mg TAB PO SCH (09:13)
[2018-12-15] MEDS: FAMOTIDINE 20 MG TAB PO SCH (09:13)
[2018-12-15] MEDS: cefTRIAXone 1GM/50ML D5W 50 ML IV SCH (09:13)
[2018-12-15] MEDS: DOXYCYCLINE 100 MG TAB/CAP PO SCH ×2 (09:13→21:00)
[2018-12-15] MEDS: ENOXAPARIN SOD 40 MG/0.4 ML SYRINGE SC SCH ×2 (09:14→09:20)
[2018-12-15] MEDS: amLODIPine BESYLATE 5 MG TAB PO SCH (09:14)
[2018-12-15] MEDS ORDERED: LORazepam 0.5 MG TAB PO PRN (09:15)
--- NOTE | 2018-12-15 09:30 | NUR ---
Called Radiology department regarding patient has order for consultation, stated patient will get a procedure done today, patient and family notified. Patient NPO now, verbalized understanding.
[2018-12-15] MEDS: SODIUM CHLORIDE 0.9% 1,000 ML IV SCH ×2 (10:24→21:00)
[2018-12-15] MEDS ORDERED: LORazepam 0.5 MG TAB PO ONE (10:30)
--- NOTE | 2018-12-15 10:35 | NUR ---
Received a call from Stacy (Radiology nurse) regarding per Dr. Anglin said the mass is very deep and might not diagnose and after that patient might need a chest tube, will call Dr. Valadez , if he wants to continue.
--- NOTE | 2018-12-15 10:36 | NUR ---
Received a call from klever Mcdaniels to continue with a procedure.
[2018-12-15 12:04] LABS: Band Neutrophils % (manual) 4; Lymphocytes % (manual) 2 (10.0-50.0); Metamyelocytes % 1; Monocytes % (manual) 4 (0-12)
[2018-12-15 13:04] VITALS: BP 119/76
--- NOTE | 2018-12-15 13:48 | NUR ---
Radiology nurse (Stacy) at bedside discuss with patient.
--- NOTE | 2018-12-15 13:50 | NUR ---
RADIOLOGY/LUNG MASS: S/W patient and at bedside about possible lung mass biopsy by Dr Anglin. Expressed to patient Dr Anglin's concerns with being a high risk procedure and possibly of needing a chest tube post procedure. Patient and state that patient has had mass since [address] Terry Medellin is aware of the mass and feels it may be benign. Patient asking to get clarification from Dr Terry Medellin if patient needs procedure since it was ordered by Dr Valadez. This RN spoke with Dr Terry Medellin via phone and MD did express concern with being a high risk procedure and the risk for developing a pneumothorax and needing a chest tube post procedure. Dr Terry Medellin stated he would support what ever decision that the patient and family made. After further discussion with patient and , patient has agreed to not have procedure done at this time. Jeff, bedside RN, made aware as well as Dr Anglin.
--- NOTE | 2018-12-15 13:54 | NUR ---
Per Dr. Florentino to cancel a procedure and patient agrees with the plan, Dr. Valadez notified.
[2018-12-15 17:04] VITALS: BP 139/86
[2018-12-15] MEDS: LORazepam 0.5 MG TAB PO SCH (19:49)
[2018-12-15 21:00] VITALS: BP 126/73
[2018-12-15] MEDS: BACLOFEN 10 MG TAB PO PRN (21:00)
[2018-12-16] MEDS: methylPREDNISolone SOD SUCC 125 MG/2 ML VL IV SCH ×3 (00:05→11:32)
[2018-12-16] MEDS: ACETYLCYSTEINE 10 %(100MG/ML) SOL 4ML NEB SCH ×2 (00:28→07:09)
[2018-12-16] MEDS: IPRATROPIUM BROM 0.5 MG/2.5ML INH SOL NEB SCH ×5 (02:09→14:01)
[2018-12-16] MEDS: ALBUTEROL SULF 2.5 MG/0.5ML(0.5%) NEB SOLN NEB SCH ×5 (02:09→14:01)
[2018-12-16 05:00] VITALS: BP 132/69
[2018-12-16 05:52] LABS: Hemoglobin 14.4 g/dL (13.5-17.5)
[2018-12-16 05:56] LABS: Hematocrit 42.7 % (41.0-53.0); Mean Corpuscular Hgb Conc. 33.7 g/dL (32.0-36.0); Mean Corpuscular Volume 100.7 fL (80.0-100.0); Platelet Count (auto) 178 10^3/uL (140-450); Red Blood Cells 4.24 10^6/uL (4.5-5.90); Red Cell Distribution Width 19.1 % (11.8-14.3); White Blood Cell 17.2 10^3/uL (4.4-10.8)
[2018-12-16 06:04] LABS: BUN/Creatinine Ratio 34.7; Calcium 7.9 mg/dL (8.5-10.1); Potassium 3.5 mmol/L (3.5-5.1)
[2018-12-16] MEDS: InsuLIN REG 1unit/0.01ml Soln (100units/ml) SC SCH ×2 (06:27→11:31)
[2018-12-16] MEDS: ACCU-CHEK COMFORT CURVE STRIP VI SCH ×2 (06:28→11:31)
[2018-12-16] MEDS: LORazepam 0.5 MG TAB PO PRN ×2 (06:32→14:55)
[2018-12-16 06:36] LABS: Band Neutrophils % (manual) 0; Basophils % (manual) 0 (0.0-2.0); Blast Cells 0; Eosinophils % (manual) 0 (0-7); Metamyelocytes % 0; Myelocytes % 0; Promyelocytes % 0; Reactive Lymphocytes 0
[2018-12-16 08:40] LABS: Lymphocytes % (manual) 4 (10.0-50.0); Monocytes % (manual) 1 (0-12)
[2018-12-16 09:00] VITALS: BP 135/77
[2018-12-16] MEDS: cefTRIAXone 1GM/50ML D5W 50 ML IV SCH (09:48)
[2018-12-16] MEDS: ASPirin 81 mg TAB PO SCH (09:49)
[2018-12-16] MEDS: FAMOTIDINE 20 MG TAB PO SCH (09:49)
[2018-12-16] MEDS: DOXYCYCLINE 100 MG TAB/CAP PO SCH (09:49)
[2018-12-16] MEDS: amLODIPine BESYLATE 5 MG TAB PO SCH (09:50)
[2018-12-16] MEDS: LORazepam 0.5 MG TAB PO SCH (09:51)
[2018-12-16] MEDS: ENOXAPARIN SOD 40 MG/0.4 ML SYRINGE SC SCH (09:51)
[2018-12-16 11:41] VITALS: BP 127/79
[2018-12-16 13:00] VITALS: BP 127/79
[2018-12-16] MEDS: SODIUM CHLORIDE 0.9% 1,000 ML IV SCH (13:14)
--- NOTE | 2018-12-16 16:38 | NUR ---
Discharge instructions given as ordered. Encourage to follow up with PMD (Follow up with Dr. Cathie Medellin in Dec 30 at 9.45 Am #[phone] Address : [address], [place], [address] Allyson Oliver will arrange HH) as instructed. All questions and concerns addressed. Patient verbalized understanding. Medication reconciliation form completed and copy given to patient. IV removed with catheter intact, pressure dressing applied. Telemetry unit returned to [facility]. Patient taken to vehicle via wheelchair with all personal belongings, accompanied by staff and family member. No distress noted at time of departure.
== END 2018-12-16 16:40 | disposition home health service (06) | DRG 189 ==
LOC: ER 15:00 → EDBD 15:00 → TELE 15:01 → TELE-CENTR 12-12 15:00
PROVIDERS: ADMIT Hospitalist; ATTEND Hospitalist
PROC: 5A09357 Assistance with Respiratory Ventilation, Less than 24 Consecutive Hours, Continuous Positive Airway Pressure (ICD-10-PCS; principal; 2018-12-11)
PROC: 5A09357 Assistance with Respiratory Ventilation, Less than 24 Consecutive Hours, Continuous Positive Airway Pressure (ICD-10-PCS; 2018-12-12)
PROC: 5A09357 Assistance with Respiratory Ventilation, Less than 24 Consecutive Hours, Continuous Positive Airway Pressure (ICD-10-PCS; 2018-12-13)
PROC: 5A09357 Assistance with Respiratory Ventilation, Less than 24 Consecutive Hours, Continuous Positive Airway Pressure (ICD-10-PCS; 2018-12-14)
PROC: 5A09357 Assistance with Respiratory Ventilation, Less than 24 Consecutive Hours, Continuous Positive Airway Pressure (ICD-10-PCS; 2018-12-15)
PROC: 5A09357 Assistance with Respiratory Ventilation, Less than 24 Consecutive Hours, Continuous Positive Airway Pressure (ICD-10-PCS; 2018-12-16)
DX: J96.21 Acute and chronic respiratory failure with hypoxia (principal); J44.1 Chronic obstructive pulmonary disease with (acute) exacerbation; E87.2 Acidosis; J44.0 Chronic obstructive pulmonary disease with (acute) lower respiratory infection; R73.9 Hyperglycemia, unspecified; E78.5 Hyperlipidemia, unspecified; M06.9 Rheumatoid arthritis, unspecified; K80.20 Calculus of gallbladder without cholecystitis without obstruction; Z53.20 Procedure and treatment not carried out because of patient's decision for unspecified reasons; Z77.090 Contact with and (suspected) exposure to asbestos; I70.0 Atherosclerosis of aorta; N18.9 Chronic kidney disease, unspecified; Z87.442 Personal history of urinary calculi; Z90.81 Acquired absence of spleen; Z99.81 Dependence on supplemental oxygen; Z87.891 Personal history of nicotine dependence; Z82.5 Family history of asthma and other chronic lower respiratory diseases; Z85.46 Personal history of malignant neoplasm of prostate; Z79.899 Other long term (current) drug therapy
CPT/HCPCS: 36415; 36600; 71045; 71275; 80048; 80053; 81001; 82805; 82962; 83036; 83605; 83880; 84484; 85007; 85027; 85379; 85610; 85730; 87040; 87086; 93005; 93970; 94640; 94660; 94761; 94762; 96365; 96366; 96367; 96372; 96375; 96376; 97110; 97116; 97163; 97530; G0378; J0696; J1815; J1956

== ENCOUNTER 2018-12-18 14:53 | Emergency (ER) | payer OTHER ==
[~2018-12-18] VITALS: Ht 165.1 cm; Wt 68.0 kg
[2018-12-18] MEDS ORDERED: LEVOFLOXACIN 500MG 100 ML IV ONE (15:15)
[2018-12-18] MEDS ORDERED: methylPREDNISolone SOD SUCC 125 MG/2 ML VL IV ONE (15:15)
[2018-12-18] MEDS ORDERED: ALBUTEROL SULF 2.5 MG/0.5ML(0.5%) NEB SOLN HHN ONE (15:15)
[2018-12-18] MEDS ORDERED: IPRATROPIUM BROM 0.5 MG/2.5ML INH SOL HHN ONE (15:15)
[2018-12-18 16:02] LABS: Hematocrit 45.3 % (41.0-53.0); Hemoglobin 15.2 g/dL (13.5-17.5); Mean Corpuscular Hemoglobin 33.5 pg (28.0-32.0); Mean Corpuscular Hgb Conc. 33.6 g/dL (32.0-36.0); Mean Corpuscular Volume 99.6 fL (80.0-100.0); Platelet Count (auto) 190 10^3/uL (140-450); Red Blood Cells 4.55 10^6/uL (4.5-5.90); Red Cell Distribution Width 18.1 % (11.8-14.3); White Blood Cell 14.8 10^3/uL (4.4-10.8)
[2018-12-18 16:13] LABS: Basophils % (manual) 0 (0.0-2.0); Blast Cells 0; Eosinophils % (manual) 0 (0-7); Metamyelocytes % 0; Myelocytes % 0; Promyelocytes % 0; Reactive Lymphocytes 0
[2018-12-18 16:20] LABS: Albumin 2.3 g/dL (3.4-5.0); Calcium 7.8 mg/dL (8.5-10.1); Magnesium 2.2 mg/dL (1.6-2.6); Potassium 4.1 mmol/L (3.5-5.1)
[2018-12-18 16:23] LABS: Lactic Acid w/Reflex 3.3 mmol/L (0.4-2.0)
[2018-12-18 16:28] LABS: BUN/Creatinine Ratio 26.9; Bilirubin, Total 1.6 mg/dL (0.2-1.0); Total Protein 5.1 g/dL (6.4-8.2)
[2018-12-18 18:28] LABS: Band Neutrophils % (manual) 4
[2018-12-18 18:29] LABS: Lymphocytes % (manual) 5 (10.0-50.0); Monocytes % (manual) 5 (0-12)
[2018-12-18] MEDS ORDERED: SODIUM CHLORIDE 0.9% 1,000 ML IV ONE (21:15)
[2018-12-18] MEDS ORDERED: SODIUM CHLORIDE 0.9% 500 ML IV ONE (21:15)
[2018-12-18] MEDS ORDERED: DEXTROSE (50%) 50ML SYRG IV PRN (21:15)
[2018-12-18] MEDS ORDERED: metFORMIN HYDROCHLORIDE 500 MG TAB PO ONE (21:15)
[2018-12-19] MEDS ORDERED: InsuLIN REG 1unit/0.01ml Soln (100units/ml) SC SCH
[2018-12-19] MEDS ORDERED: ACCU-CHEK COMFORT CURVE STRIP VI SCH
[2018-12-19 00:45] VITALS: BP 150/67
== END 2018-12-19 00:59 | disposition home or self-care (01) ==
LOC: ER 14:53 → EDBD 14:53 → ER 12-19 00:59
DX: J44.1 Chronic obstructive pulmonary disease with (acute) exacerbation (principal); R74.0 Nonspecific elevation of levels of transaminase and lactic acid dehydrogenase [LDH]; R73.9 Hyperglycemia, unspecified; I12.9 Hypertensive chronic kidney disease with stage 1 through stage 4 chronic kidney disease, or unspecified chronic kidney disease; N18.9 Chronic kidney disease, unspecified; E78.00 Pure hypercholesterolemia, unspecified; Z90.89 Acquired absence of other organs; Z79.82 Long term (current) use of aspirin; Z79.899 Other long term (current) drug therapy
CPT/HCPCS: 36415; 71045; 76705; 80053; 82962; 83605; 83735; 83880; 84484; 85007; 85027; 87040; 93005; 94644; 94761; 96365; 96366; 96372; 96375; 99284; J1815; J1956; J2930; J7030; J7611; J7644

== ENCOUNTER 2020-02-23 11:22 | Inpatient (IN) | payer OTHER ==
[~2020-02-23] VITALS: Ht 167.6 cm; Wt 71.8 kg
[~2020-02-23 11:22] MED LIST changes: +METH2.5T; -METH2.5T3
[2020-02-23] MEDS ORDERED: ALBUTEROL SULF 2.5 MG/0.5ML(0.5%) NEB SOLN ONE (11:26)
[2020-02-23] MEDS ORDERED: methylPREDNISolone SOD SUCC 125 MG/2 ML VL IV ONE (11:30)
[2020-02-23] MEDS ORDERED: cefTRIAXone 1GM/50ML D5W 50 ML IV ONE (11:45)
[2020-02-23] MEDS ORDERED: AZITHROMYCIN 500MG/ 250ML 250 ML IV ONE (11:45)
[2020-02-23] MEDS ORDERED: ALBUTEROL SULF 2.5 MG/0.5ML(0.5%) NEB SOLN NEB ONE (11:45)
[2020-02-23 12:30] LABS: Hematocrit 47.1 % (41.0-53.0); Hemoglobin 15.6 g/dL (13.5-17.5); Mean Corpuscular Hemoglobin 32.5 pg (28.0-32.0); Mean Corpuscular Hgb Conc. 33.1 g/dL (32.0-36.0); Mean Corpuscular Volume 98.2 fL (80.0-100.0); Platelet Count (auto) 359 10^3/uL (140-450); Red Blood Cells 4.79 10^6/uL (4.5-5.90); Red Cell Distribution Width 16.5 % (11.8-14.3)
[2020-02-23 12:31] LABS: Urine Bacteria NONE SEEN /hpf (None Seen); Urine Blood TRACE /uL (Negative); Urine Mucus FEW (None Seen); Urine WBC 2 /hpf (0 - 3)
[2020-02-23 12:38] LABS: Band Neutrophils % (manual) 0; Basophils % (manual) 0 (0.0-2.0); Blast Cells 0; Eosinophils % (manual) 0 (0-7); Myelocytes % 0; Promyelocytes % 0; Reactive Lymphocytes 0
[2020-02-23 12:45] LABS: INR 1.04 (0.9-1.15); Partial Thromboplastin Time 24.5 sec (23.0-31.2)
[2020-02-23 12:47] LABS: Albumin 2.9 g/dL (3.4-5.0); Anion Gap 11 (5-15); Blood Urea Nitrogen 24 mg/dL (7-18); Calcium 9.4 mg/dL (8.5-10.1); Carbon Dioxide 22 mmol/L (21-32); Chloride 104 mmol/L (98-107); Glucose 99 mg/dL (74-106); Potassium 4.1 mmol/L (3.5-5.1); Sodium 137 mmol/L (136-145)
[2020-02-23 12:52] LABS: Alanine Aminotransferase 72 U/L (16-61); Alkaline Phosphatase 249 U/L (45-117); Aspartate Aminotransferase 39 U/L (15-37); BUN/Creatinine Ratio 29.3; Bilirubin, Total 0.9 mg/dL (0.2-1.0); GFR African American 117 mL/min; GFR Non-African American 97 mL/min; Total Protein 6.8 g/dL (6.4-8.2)
[2020-02-23 13:14] LABS: Lymphocytes % (manual) 7 (10.0-50.0); Metamyelocytes % 1; Monocytes % (manual) 6 (0-12)
[2020-02-23] MEDS ORDERED: ACETAMINOPHEN 325 MG TAB PO PRN (14:30)
[2020-02-23] MEDS ORDERED: NITROGLYCERIN 0.4 MG SL TAB SL PRN (14:30)
[2020-02-23] MEDS ORDERED: MORPHINE SULF INJ 2 MG/ML SYRINGE 1ML IV PRN (14:30)
[2020-02-23] MEDS ORDERED: DEXTROSE (50%) 50ML SYRG IV PRN (14:30)
[2020-02-23] MEDS ORDERED: FUR20T PO (14:40)
[2020-02-23] MEDS ORDERED: LISI-275 PO ×2 (14:40→18:32)
[2020-02-23 15:22] VITALS: BP 101/72
--- NOTE | 2020-02-23 15:45 | NUR ---
MS admit from ER [facility] admitted to MS after SBAR received. Patient oriented to Grisel Bailey, primary RN, unit, room, bed, and unit policies regarding patient care and visiting hours. Patient weighed by bedscale and encouraged to call if they need something. All questions and concerns addressed, patient verbalized understanding. Patient placed on 2L N/C SAT 97%. Will cont to monitor,fall precs in place per protocol.
[2020-02-23] MEDS: ACCU-CHEK COMFORT CURVE STRIP VI SCH ×2 (17:47→23:24)
[2020-02-23] MEDS: InsuLIN REG 1unit/0.01ml Soln (100units/ml) SC SCH ×2 (17:50→23:25)
[2020-02-23 17:55] VITALS: BP 131/89
--- NOTE | 2020-02-23 18:17 | NUR ---
at bedside MD Phoenix at bedside aware of patient's status. MD states pt in house covid is negative and that he spoke to house sup to move patient out of covid. No new orders received. Cont care
--- NOTE | 2020-02-23 18:30 | NUR ---
Photos taken of skin tears noted on admission to [facility]. Skin tears cleansed with wound cleanser, mutton puncher dry with sterile gauze and covered with optifoam gentle dressing. Wound forms placed in chart. Cont to monitor
[2020-02-23] MEDS ORDERED: ACET-1156 PO (18:32)
[2020-02-23] MEDS ORDERED: FURO20TA3 PO (18:32)
[2020-02-23] MEDS ORDERED: DOCU-94 PO (18:32)
[2020-02-23] MEDS ORDERED: PRED-158 PO (18:32)
[2020-02-23] MEDS ORDERED: GUAI600T23 PO (18:32)
[2020-02-23] MEDS ORDERED: BISA-13 PO (18:32)
[2020-02-23] MEDS ORDERED: TRAM50TA2 PO (18:32)
[2020-02-23] MEDS ORDERED: ASCO500T11 PO (18:32)
[2020-02-23] MEDS ORDERED: METF-370 PO (18:32)
[2020-02-23] MEDS ORDERED: FOLI1TAB6 PO (18:32)
[2020-02-23] MEDS ORDERED: OMEG1CAP59 PO (18:32)
[2020-02-23] MEDS ORDERED: ASPI81CH43 PO (18:32)
[2020-02-23] MEDS ORDERED: AMLO5TAB15 PO (18:32)
[2020-02-23] MEDS ORDERED: PANT40T PO (18:32)
[2020-02-23] MEDS ORDERED: IPRA0.03 (18:33)
--- NOTE | 2020-02-23 21:20 | NUR ---
PATIENT TO ROOM 291b PATIENT TRANSFERRED WITH FRANCE MOE. PATIENT ABLE TO TRANSFER FROM WHEELCHAIR AND THEN TO BED WITH MINIMAL- MODERATE ASSISTANCE. PATIENT RECEIVING 4L O2 VIA N.C. PATIENT HAD SOB WITH EXERTION DURING TRANSPORT. PATIENT REPORTING NO OTHER SYMPTOMS OTHER THAN "FEEL WEAK." FULL REPORT GIVEN TO RFANCE MOE. PATIENT TRANSFERRED WITH ALL PERSONAL BELONGINGS.
--- NOTE | 2020-02-23 21:25 | NUR ---
RECEIVED PATIENT FROM COVID UNIT. PATIENT TRANSFERRED VIA HOSPITAL BED. NO S/S OF DISTRESS NOTED. NOTED SOB DURING TRANSFER. C/O PAIN WHEN BREATHING @ 7/10. WILL ADMINISTER PAIN MEDICATION ORDERED. CONNECTED PATIENT ON O2 3L/NC. TRAVIS CATH IN PLACE DRAINING TO GRAVITY. BED IN LOWEST POSITION WITH SIDE RAILS UP X 2. CALL FAIR WITHIN REACH. ALARM ON. CONTINUE TO MONITOR FOR CHANGES Q1H AND PRN.
[2020-02-23 21:30] VITALS: BP 129/83
[2020-02-23 21:35] VITALS: BP 142/84
[2020-02-23] MEDS: HYDROcodone-ACET 5/325MG TAB PO PRN (21:47)
[2020-02-23] MEDS: methylPREDNISolone SOD SUCC 40 MG/ML VL IV SCH (21:47)
--- NOTE | 2020-02-23 21:48 | NUR ---
MEDICATED PATIENT FOR PAIN @ 11/12. PATIENT PREFERRED NORCO. MRSA SWAB COLLECTED AND SENT TO LAB. CONTINUE TO MONITOR.
--- NOTE | 2020-02-23 23:07 | NUR ---
RT PAGED FOR [employer]
[2020-02-23] MEDS: INSULIN LANTUS (GLARGINE) 1 /0.01ml (100units/ml) SC SCH (23:24)
--- NOTE | 2020-02-23 23:40 | NUR ---
ACCU-CHECK, BS 132. INSULIN GIVEN ORDERED. CONTINUE TO MONITOR.
[2020-02-24] VITALS (15 sets, daily range): BP systolic 100–160; BP diastolic 69–115
--- NOTE | 2020-02-24 03:06 | NUR ---
PATIENT'S ON BIPAP. NO S/S OF DISTRESS NOTED. CONTINUE CARE.
[2020-02-24] MEDS: ACCU-CHEK COMFORT CURVE STRIP VI SCH ×4 (06:05→23:49)
[2020-02-24] MEDS: InsuLIN REG 1unit/0.01ml Soln (100units/ml) SC SCH ×4 (06:06→23:50)
--- NOTE | 2020-02-24 06:06 | NUR ---
ACCU-CHECK, BS 172. INSULIN GIVEN ORDERED. CONTINUE TO MONITOR.
[2020-02-24 06:49] LABS: Calcium 9.1 mg/dL (8.5-10.1); Potassium 4.1 mmol/L (3.5-5.1)
[2020-02-24 06:55] LABS: Albumin 2.6 g/dL (3.4-5.0); BUN/Creatinine Ratio 41.7; Bilirubin, Total 0.6 mg/dL (0.2-1.0); Total Protein 6.4 g/dL (6.4-8.2)
[2020-02-24 07:02] LABS: Hemoglobin 14.8 g/dL (13.5-17.5); Mean Corpuscular Hemoglobin 33.3 pg (28.0-32.0); Mean Corpuscular Hgb Conc. 33.7 g/dL (32.0-36.0); Mean Corpuscular Volume 98.6 fL (80.0-100.0); Platelet Count (auto) 367 10^3/uL (140-450); Red Blood Cells 4.46 10^6/uL (4.5-5.90); Red Cell Distribution Width 16.6 % (11.8-14.3); White Blood Cell 17.5 10^3/uL (4.4-10.8)
[2020-02-24 07:12] LABS: Basophils % (manual) 0 (0.0-2.0); Blast Cells 0; Eosinophils % (manual) 0 (0-7); Metamyelocytes % 0; Myelocytes % 0; Promyelocytes % 0; Reactive Lymphocytes 0
--- NOTE | 2020-02-24 08:00 | NUR ---
Patient resting comfortably in bed with no distress noted. Patient stable.
[2020-02-24 08:30] LABS: Band Neutrophils % (manual) 3; Lymphocytes % (manual) 1 (10.0-50.0); Monocytes % (manual) 2 (0-12)
--- NOTE | 2020-02-24 09:00 | NUR ---
Patient stable with Dr. Phoenix at bedside. New orders given and carried out.
[2020-02-24] MEDS ORDERED: IPRATROPIUM BROM 0.5 MG/2.5ML INH SOL ONE (09:06)
[2020-02-24] MEDS ORDERED: ALBUTEROL SULF 2.5 MG/0.5ML(0.5%) NEB SOLN ONE (09:06)
--- NOTE | 2020-02-24 09:20 | NUR ---
Patient exhibits difficulty breathing. RT Andressa at bedside to change breathing apparatus from nasal cannula to Bipap. Patient's breathing improved with BiPap.
--- NOTE | 2020-02-24 09:40 | NUR ---
Patient taken to Radiology Dept for thoracentesis.
--- NOTE | 2020-02-24 11:20 | NUR ---
THORACENTESIS PATIENT UNDERWENT THORACENTESIS IN .. DEPT. - PATIENT BECAME SOB WITH O2 ON @ 6L/NC, RESP 34-38 - RT NOTIFIED AND PLACED NRB ON PATIENT. 550 ML THICK BLOODY PURULENT DRNG OBTAINED WITH THORACENTESIS. DR BUTLER PLACED PIGTAIL CHEST TUBE AND ATTACHED PLEURAVAC TO WATER SEAL DRNG. PENDING CXR. DR BUTLER NOTED PNEUMOTHORAX ON CXR AND ORDERED CT TO 20 WALL SUCTION- WILL RE-CHECK CXR AGAIN IN 1-2 HOURS. CHANNEL LIP STIFFENER INSOLES ACCOMPANIED PATIENT BACK TO ROOM AFTER CXR FOR BIPAP AND TEGADERM PLACED OVER SITE. SAO2 97% WITH NRB IN PLACE - BIPAP ORDERED FOR PATIENT PER DR BUTLER PATIENT REMAINED EXTREMELY SOB AND VERY LABORED RESP - RT AWARE OF ORDER DESPITE CHEST TUBE PLACEMENT. UPON RETURN TO PATIENT'S ROOM - CHANNEL LIP STIFFENER INSOLES GAVE PATIENT'S RN SHAWN AND FINISHER OPERATOR KHUSHBU REPORT ON PATIENT AND CHANNEL LIP STIFFENER INSOLES RECOMMENDED [facility] UPGRADE. CHEST TUBE CONNECTED TO 20 CM WALL SUCTION PER ORDER. PATIENT PLACED ON BEDSIDE MONITOR PER CHANNEL LIP STIFFENER INSOLES AND CONTINUOUS PULSE OX - SAO2 97% AFTER PATIENT PACED ON BIPAP. FLUID TAKEN TO LAB FOR ORDERED TESTING. Addendum: 02/24/20 at 1917 by Pily Celaya RN SEE VS FLOW SHEET FOR VS DURING PROCEDURE.
--- NOTE | 2020-02-24 11:20 | NUR ---
Patient returned to unit; thoracentesis done, 400mls of bloody drainage removed and sent to lab. Chest tube on right side due to pneumothorax; 20cm suction. Paged doctor to relay results and request for transfer to [facility].
[2020-02-24] MEDS: ENOXAPARIN SOD 40 MG/0.4 ML SYRINGE SC SCH (11:49)
[2020-02-24] MEDS: FUROSEMIDE 20 MG TAB PO SCH (11:49)
[2020-02-24] MEDS: methylPREDNISolone SOD SUCC 40 MG/ML VL IV SCH ×2 (11:49→20:41)
[2020-02-24] MEDS: LISINOPRIL 5 MG TAB PO SCH (11:49)
[2020-02-24] MEDS: levoFLOXacin 750MG 150 ML IV SCH (11:50)
--- NOTE | 2020-02-24 12:41 | NUR ---
Checked blood sugar: 146 mg/dl - will cover per sliding scale. Addendum: 02/24/20 at 1344 by SHAWN JORDAN RN RN [phone]: Covered per sliding scale.
--- NOTE | 2020-02-24 12:55 | NUR ---
Patient transferred to [facility] Room 262.
[2020-02-24] MEDS: IPRATROPIUM BROM 0.5 MG/2.5ML INH SOL NEB SCH ×3 (14:07→23:13)
[2020-02-24] MEDS: ALBUTEROL SULF 2.5 MG/0.5ML(0.5%) NEB SOLN NEB SCH ×3 (14:07→23:13)
--- NOTE | 2020-02-24 14:15 | NUR ---
CHEST X-RAY REVIEWED WITH STABLE PNEUMO OF 30%.
--- NOTE | 2020-02-24 16:00 | NUR ---
RECEIVED FROM [facility] ROOM 291 S/P CT PLACEMENT S/P THORACENTESIS PT A=O X4 ON BIPAP 04/09 AT 3%, CT TO 30 CM OF - WATER SEAL SUCTION, NO CREPITUS AT CT INSERTION SITE. NO AIR BUBBLES IN WATER SEAL CHAMBER. SPO2 IN THE UPPER 90'S TO 100'S PT TACHYCARDIC AND TACHYPNEIC EDUCATED ON POC, PT VERBALIZED UNDERSTANDING.. Addendum: 02/24/20 at 3888 by HELEN VELAZCO RN TIME OF ENTRY IS 1400 NOT 1600
--- NOTE | 2020-02-24 19:10 | NUR ---
RECEIVED REPORT FROM NURSE CERVANTES TO RESUME CARE OF PATIENT.
--- NOTE | 2020-02-24 20:42 | NUR ---
Opening Shift Note Assumed care of patient, awake and alert. No S/S of distress/SOB currently on BIPAP 12/5 FiO2 30% or pain or any discomfort. patient has chest tube with pleural vac hooked to low continuous suction 20mmhg with 8.5fr pigtail catheter patent and intact. patient has lee draining clear yellow urine to gravity. Instructed on POC and to call for assist PRN, will continue to monitor for changes Q1hr and PRN.
[2020-02-24] MEDS: INSULIN LANTUS (GLARGINE) 1 /0.01ml (100units/ml) SC SCH (21:40)
--- NOTE | 2020-02-24 22:12 | NUR ---
PATIENT WAS OFF BIPAP PLACED ON O2 4LNC SO PATIENT CAN EAT. PATIENT IN NO APPARENT RESPIRATORY DISTRESS OR SOB. PATIENT ABLE TO EAT EVENING SNACK. PLACED PATIENT BACK ON BIPAP. WILL CONTINUE TO MONITOR PATIENT.
[2020-02-24] MEDS: HYDROcodone-ACET 5/325MG TAB PO PRN (23:00)
--- NOTE | 2020-02-24 23:36 | NUR ---
PAIN PATIENT C/O 6/10 ABDOMINAL PAIN REQUESTING PAIN MEDICATION. ADMINISTERED NORCO 5/325MG PO PRESCRIBED. PATIENT TOLERATED WELL.
[2020-02-25] VITALS (11 sets, daily range): BP systolic 110–138; BP diastolic 73–89
--- NOTE | 2020-02-25 | NUR ---
REASSESSMENT OF PAIN PATIENT HAS NO COMPLAINTS OF PAIN OR ANY DISCOMFORT RESTING COMFORTABLY IN BED
[2020-02-25] MEDS: HYDROcodone-ACET 5/325MG TAB PO PRN ×3 (04:00→22:27)
[2020-02-25] MEDS: ALBUTEROL SULF 2.5 MG/0.5ML(0.5%) NEB SOLN NEB SCH ×6 (04:55→22:23)
[2020-02-25] MEDS: IPRATROPIUM BROM 0.5 MG/2.5ML INH SOL NEB SCH ×6 (04:55→22:23)
[2020-02-25] MEDS: InsuLIN REG 1unit/0.01ml Soln (100units/ml) SC SCH ×3 (05:56→17:41)
[2020-02-25] MEDS: ACCU-CHEK COMFORT CURVE STRIP VI SCH ×3 (05:56→17:40)
--- NOTE | 2020-02-25 07:42 | NUR ---
TOOK PT OFF BIPAP AND PLACED ON 3LPM NASAL CANNULA. HR 96, RR 24, SPO2 97%. PT DENIES SOB. NO S/S OF DISTRESS NOTED. PT AWARE TO CALL FOR RT IF NEEDED. NOTIFIED RN OF CHANGES.
--- NOTE | 2020-02-25 09:15 | NUR ---
DR. ROWE AT BEDSIDE: ORDERS MD UPDATED ON PT'S CURRENT STATUS, LABS AND POC FOR TODAY. ORDERS GIVEN AND TO BE CARRIED OUT. CONTINUE CARE. GIVEN MD PATIENT'S PHONE NUMBER SO HE COULD CALL LATER ON TODAY.
[2020-02-25 09:35] LABS: Hematocrit 41.9 % (41.0-53.0); Hemoglobin 13.9 g/dL (13.5-17.5); Mean Corpuscular Hgb Conc. 33.2 g/dL (32.0-36.0); Mean Corpuscular Volume 99.3 fL (80.0-100.0); Platelet Count (auto) 386 10^3/uL (140-450); Red Blood Cells 4.22 10^6/uL (4.5-5.90); Red Cell Distribution Width 16.6 % (11.8-14.3); White Blood Cell 14.4 10^3/uL (4.4-10.8)
[2020-02-25 09:43] LABS: Band Neutrophils % (manual) 0; Basophils % (manual) 0 (0.0-2.0); Eosinophils % (manual) 0 (0-7); Metamyelocytes % 0; Promyelocytes % 0
[2020-02-25 09:44] LABS: Blast Cells 0; Reactive Lymphocytes 0
--- NOTE | 2020-02-25 09:44 | NUR ---
DR. Padmini ANDERS AT BEDSIDE: ORDERS MD UPDATED ON PT'S CURRENT STATUS ,LABS AND CXR FOR TODAY. ORDERS GIVEN AND TO BE CARRIED OUT. MD WANTING TO CONTINUE WITH CHEST TUBE AT -20 CM OF H20 SUCTION. DAILY CXR TO BE ORDERED. CONTINUE CARE.
[2020-02-25 09:59] LABS: BUN/Creatinine Ratio 34.8; Potassium 3.6 mmol/L (3.5-5.1)
[2020-02-25] MEDS: FUROSEMIDE 20 MG TAB PO SCH (09:59)
[2020-02-25] MEDS: levoFLOXacin 750MG 150 ML IV SCH (09:59)
[2020-02-25] MEDS: ENOXAPARIN SOD 40 MG/0.4 ML SYRINGE SC SCH (09:59)
[2020-02-25] MEDS: methylPREDNISolone SOD SUCC 40 MG/ML VL IV SCH ×2 (09:59→22:27)
[2020-02-25] MEDS: LISINOPRIL 5 MG TAB PO SCH (09:59)
--- NOTE | 2020-02-25 10:00 | NUR ---
WOUND CARE NOTE: IN TO SEE PATIENT AT THIS TIME PER WOUND CARE CONSULT REQUEST. PATIENT ADMITTED TO [facility] WITH DIAGNOSIS COPD, RULE OUT PNA. CURRENT JOHN SCORE IS 18. PATIENT CAN SELF TURN/REPOSITION SELF. PATIENT HAS MULTIPLE ECCHYMOSIS AND SKIN TEARS TO BILATERAL UPPER EXTREMITIES. ALL SKIN TEARS ARE PARTIAL THICKNESS. APPLIED THERAHONEY, OPTIFOAM GENTLE DRESSINGS TO WOUNDS. SKIN/WOUND CARE PLAN IMPLEMENTED. RECOMMEND: FREQUENT TURN SCHEDULE Q 2 HOURS, PRN CONDITION PERMITS TO REDISTRIBUTE PRESSURE, Q 3 DAY/PRN DRESSING CHANGE TO ALL OPEN SKIN TEARS ON BUE; SKIN/WOUND CARE PLAN, DIETARY CONSULT FOR MULTIPLE WOUNDS. WOUND CARE TEAM WILL CONTINUE TO MONITOR. Addendum: 02/25/20 at 1343 by Cindy Lim RN Amended: Links added.
[2020-02-25 10:34] LABS: Lymphocytes % (manual) 5 (10.0-50.0); Monocytes % (manual) 8 (0-12); Myelocytes % 1
--- NOTE | 2020-02-25 12:44 | NUR ---
Nutrition Consult Consider adding Glucerna 1 carton BID Consider adding MVI and Vitamin C 500 mg BID Est energy needs [id number] kcal (25-30 kcal/kg BW 64kg) Est protein needs 64-70g (1-1.1g/kg BW 64kg) Will reassess prn. Addendum: 02/25/20 at [address] Amended: Links added.
--- NOTE | 2020-02-25 19:30 | NUR ---
Opening Shift Note Received report from day shift RN Mercedes. Pt came in on 02/22 for SOB; pt was negative for COVID. Pt was admitted to [facility] with a diagnosis of PNA and COPD exacerbation. On 02/23, Chest US showed a pleural effusion and the patient was taken to radiology for a thoracentesis. Pt got SOB after the procedure and was brought to [facility] with a right upper back chest tube. Hx gathered from chart and previous RN. Pt is currently AAOx4, lying in bed on NC 3L asking to go on his bipap. RT with patient at this time putting him on bipap. Pt has a right upper back pigtail chest tube. Dressing is dry and intact, no subcutaneous emphysema or s/s of infection noted to the site. Pt's VSS, bed is locked at lowest position, side rails are up, call light is within reach, pt instructed to call if he needs anything. Pt verbalized understanding. Will continue to monitor.
[2020-02-25] MEDS: INSULIN LANTUS (GLARGINE) 1 /0.01ml (100units/ml) SC SCH (22:24)
[2020-02-26] VITALS (9 sets, daily range): BP systolic 102–121; BP diastolic 71–83
[2020-02-26] MEDS: ACCU-CHEK COMFORT CURVE STRIP VI SCH ×4 (00:18→17:34)
[2020-02-26] MEDS: InsuLIN REG 1unit/0.01ml Soln (100units/ml) SC SCH ×4 (00:21→17:33)
[2020-02-26] MEDS: ALBUTEROL SULF 2.5 MG/0.5ML(0.5%) NEB SOLN NEB SCH ×6 (02:18→22:54)
[2020-02-26] MEDS: IPRATROPIUM BROM 0.5 MG/2.5ML INH SOL NEB SCH ×6 (02:18→22:55)
--- NOTE | 2020-02-26 02:18 | NUR ---
Complete Linen change CHG wipes and bed bath given. Pt tolerated well. Will continue to monitor.
--- NOTE | 2020-02-26 04:15 | NUR ---
Bipap Pt requesting to be taken off bipap. RT paged. RT at bedside taking pt off bipap [phone]
--- NOTE | 2020-02-26 04:17 | NUR ---
Respiratory note: PT REQUESTED TO BE TAKEN OFF BIPAP, PLACED ON 3L NC, NO SIGNS OF RESPIRATORY DISTRESS. WILL ENDORSE POC TO DAYSHIFT RT.
[2020-02-26] MEDS: HYDROcodone-ACET 5/325MG TAB PO PRN ×3 (04:27→17:32)
--- NOTE | 2020-02-26 07:45 | NUR ---
OPENING SHIFT NOTE Received report from NOC RNMallika. Assumed care of patient. Received patient lying in bed, connected to bedside monitor with alarms in place. Patient is A&Ox4, denies pain and has no s/s of distress noted. Patient with right posterior chest tube in place to -20mmHg suction with ~80ml of sanguinous drainage noted in canister. No leak noted. Patient on 3L NC with O2 sats >92%. Patient with PIV to left upper arm with TKO infusing and is patent and intact. Sears draining clear yellow UOP. Bed is in lowest position, rails x2 up and call light within reach. Updated on plan of care. Will continue to monitor.
--- NOTE | 2020-02-26 09:34 | NUR ---
MD Dr Terry Medellin to see patient. Orders received. Increased CT suction to -25. CXR daily ordered.
--- NOTE | 2020-02-26 09:38 | NUR ---
T/C from Dr Phoenix. Updated on plan of care recommendation from Dr Terry Medellin. Orders received.
[2020-02-26] MEDS: LISINOPRIL 5 MG TAB PO SCH (10:00)
[2020-02-26 10:20] LABS: Potassium 4.1 mmol/L (3.5-5.1)
[2020-02-26 10:28] LABS: Albumin 2.4 g/dL (3.4-5.0); Bilirubin, Total 0.4 mg/dL (0.2-1.0); Calcium 8.7 mg/dL (8.5-10.1); Total Protein 5.8 g/dL (6.4-8.2)
[2020-02-26] MEDS: ENOXAPARIN SOD 40 MG/0.4 ML SYRINGE SC SCH (10:29)
[2020-02-26] MEDS: methylPREDNISolone SOD SUCC 40 MG/ML VL IV SCH ×2 (10:29→21:41)
[2020-02-26 10:30] LABS: Mean Corpuscular Hemoglobin 33.3 pg (28.0-32.0); Mean Corpuscular Volume 97.9 fL (80.0-100.0); Platelet Count (auto) 413 10^3/uL (140-450); Red Blood Cells 4.19 10^6/uL (4.5-5.90); Red Cell Distribution Width 16.3 % (11.8-14.3); White Blood Cell 13.4 10^3/uL (4.4-10.8)
[2020-02-26] MEDS: levoFLOXacin 750MG 150 ML IV SCH (10:30)
[2020-02-26] MEDS: FUROSEMIDE 20 MG TAB PO SCH (10:30)
[2020-02-26 10:37] LABS: Basophils % (manual) 0 (0.0-2.0); Blast Cells 0; Eosinophils % (manual) 0 (0-7); Lymphocytes % (manual) 0 (10.0-50.0); Metamyelocytes % 0; Myelocytes % 0; Promyelocytes % 0; Reactive Lymphocytes 0
[2020-02-26 11:32] LABS: Band Neutrophils % (manual) 3; Monocytes % (manual) 11 (0-12)
--- NOTE | 2020-02-26 11:51 | NUR ---
FAMILY T/C from patient's , Kaylee. Password verified. Updated on patient status and plan of care. All questions addressed at this time.
--- NOTE | 2020-02-26 16:59 | NUR ---
Patient c/o not having BM since 02/22/20. Contacted Dr Phoenix, orders received. Patient made aware.
[2020-02-26] MEDS ORDERED: BISACODYL 5 MG EC TAB PO ONE (17:00)
--- NOTE | 2020-02-26 19:16 | NUR ---
CLOSING SHIFT NOTE Report given to NOC RNMallika. Patient had ~25ml of output from CT. Patient has been treated with [place] x2 for pain throughout shift. Patient remains A&Ox4 with no s/s of distress noted. Care endorsed.
--- NOTE | 2020-02-26 19:40 | NUR ---
Opening Shift Note Received report from day shift RN Maria A. Pt came in on 02/22 for SOB; pt was negative for COVID. Pt was admitted to [facility] with a diagnosis of COPD exacerbation. On 02/23, Chest US showed a pleural effusion and the patient was taken to radiology for a thoracentesis. Pt got SOB after the procedure and was brought to [facility] with a right upper back chest tube. Hx gathered from chart and previous RN's. Pt is currently AAOx4, lying in bed on NC 3L asking to go on his bipap. RT with patient at this time putting him on bipap. Patient placed on bipap at this time. Pt has a right upper back pigtail chest tube. Dressing is dry and intact, no subcutaneous emphysema or s/s of infection noted to the site. Pt's VSS, bed is locked at lowest position, side rails are up, call light is within reach, pt instructed to call if he needs anything. Pt verbalized understanding. Will continue to monitor.
[2020-02-26] MEDS: SENNA 8.6 MG TAB PO SCH (21:41)
[2020-02-26] MEDS: DOCUSATE SOD 100 MG CAP PO SCH (21:41)
[2020-02-26] MEDS: INSULIN LANTUS (GLARGINE) 1 /0.01ml (100units/ml) SC SCH (22:35)
--- NOTE | 2020-02-26 23:30 | NUR ---
Bipap Pt taken off bipap at this time. Pt sitting up in bed on 3L NC eating sandwich at this time, VSS. Will continue to monitor
[2020-02-27] VITALS (11 sets, daily range): BP systolic 115–149; BP diastolic 76–92
--- NOTE | 2020-02-27 00:15 | NUR ---
Bipap Pt placed back on bipap per pt's request at this time. VSS, will continue to monitor.
[2020-02-27] MEDS: ACCU-CHEK COMFORT CURVE STRIP VI SCH ×4 (00:22→17:30)
[2020-02-27] MEDS: InsuLIN REG 1unit/0.01ml Soln (100units/ml) SC SCH ×4 (00:26→17:30)
[2020-02-27] MEDS: HYDROcodone-ACET 5/325MG TAB PO PRN ×4 (00:29→21:19)
[2020-02-27] MEDS: ALBUTEROL SULF 2.5 MG/0.5ML(0.5%) NEB SOLN NEB SCH ×6 (02:32→22:52)
[2020-02-27] MEDS: IPRATROPIUM BROM 0.5 MG/2.5ML INH SOL NEB SCH ×6 (02:32→22:52)
--- NOTE | 2020-02-27 04:45 | NUR ---
Complete linen change Complete linen change completed at this time. Bed bath given to patient. Pt tolerated well. Will continue to monitor.
[2020-02-27 05:48] LABS: Basophils # (auto) 0.1 10 ^3/uL (0-0.2); Basophils % (auto) 0.4 % (0.0-2.0); Eosinophils # (auto) 0 10 ^3/uL (0-0.8); Hematocrit 41.8 % (41.0-53.0); Hemoglobin 13.9 g/dL (13.5-17.5); Lymphocytes # (auto) 0.2 10 ^3/uL (0.4-5.4); Lymphocytes % (auto) 1.9 % (10.0-50.0); Mean Corpuscular Hgb Conc. 33.2 g/dL (32.0-36.0); Mean Corpuscular Volume 99.5 fL (80.0-100.0); Monocytes # (auto) 0.9 10 ^3/uL (0-1.3); Monocytes % (auto) 6.9 % (0.0-12.0); Neutrophils % (auto) 90.8 % (37.0-80.0); Nucleated Red Blood Cells % 0.2 %; Platelet Count (auto) 421 10^3/uL (140-450); Red Cell Distribution Width 16.6 % (11.8-14.3); White Blood Cell 13.2 10^3/uL (4.4-10.8)
--- NOTE | 2020-02-27 06:00 | NUR ---
Wound dressing change Thera-honey applied and wound dressings changed.
[2020-02-27 06:16] LABS: Potassium 4.3 mmol/L (3.5-5.1)
[2020-02-27 06:30] LABS: Albumin 2.4 g/dL (3.4-5.0); BUN/Creatinine Ratio 34.9; Bilirubin, Total 0.4 mg/dL (0.2-1.0); Calcium 8.5 mg/dL (8.5-10.1); Total Protein 5.7 g/dL (6.4-8.2)
--- NOTE | 2020-02-27 07:30 | NUR ---
REPORT RECEIVED AND CHECKED ON PT WHO IS RESTING WITH HIS EYES CLOSED AND NO DISTRESS NOTED.
--- NOTE | 2020-02-27 08:30 | NUR ---
ASSESSMENT PT AWAKE AND A/O X4. ABLE TO HELP TURN HIMSELF IN BED. FOLLOWS SIMPLE COMMANDS. LUNGS CLEAR ON THE LEFT AND CLEAR AND DIMINISHED ON THE RIGHT. PT WITH A CHEST TUBE TO HIS RIGHT UPPER BACK , DRESSING CLEAN, DRY AND INTACT, CONNECTED TO ATRIUM WITH 25 OF SUCTION AND DRAINING SMALL AMOUNT OF THIN SEROSANGUINOUS FLUID. O2 SAT OF 100% WITH BIPAP AT 12/5, BACK UP RATE OF 12, AND 30% FIO2. ABD SOFT WITH + BOWEL SOUNDS.STATES LAST BM WAS ON 02/21, PT RECEIVING COLACE AND SENNOKOT, SCHEDULED. TRAVIS CATHETER DRAINING YELLOW URINE WITH SEDIMENT NOTED. PT WITH SKIN TEARS , 3 ON THE RIGHT ARM AND 1 ON THE LEFT ARM. ALL COVERED WITH OPTIFOAM DRESSING AND THERAHONEY. PT TURNED FOR COMFORT. OPTIFOAM TO SACRUM, SKIN UNDER IS CLEAR. HEELS ARE A BLANCHABLE PINK AND OFFLOADED THEM ON A PILLOW. MEDICATED FOR C/O PAIN TO HIS BACK, CT INSERTION SITE.CONTINUE TO MONITOR.
--- NOTE | 2020-02-27 08:40 | NUR ---
PT TAKEN OFF BIPAP. BREAKFAST AT BEDSIDE. PT WAS PLACED ON 2L/MIN VIA NC. 98% O2 SATS, HR 88 BPM, RR20 BPM, BP 116/86. PT TOLERATING WELL. NO SOB OR ANY OTHER RESPIRATORY DISTRESS NOTED. WILL CONTINUE TO MONITOR PT.
[2020-02-27] MEDS: levoFLOXacin 750MG 150 ML IV SCH (09:33)
[2020-02-27] MEDS: DOCUSATE SOD 100 MG CAP PO SCH ×2 (09:35→21:18)
[2020-02-27] MEDS: FUROSEMIDE 20 MG TAB PO SCH (09:35)
[2020-02-27] MEDS: ENOXAPARIN SOD 40 MG/0.4 ML SYRINGE SC SCH (09:36)
[2020-02-27] MEDS: methylPREDNISolone SOD SUCC 40 MG/ML VL IV SCH ×2 (09:36→21:17)
[2020-02-27] MEDS: LISINOPRIL 5 MG TAB PO SCH (09:36)
--- NOTE | 2020-02-27 12:00 | NUR ---
ACCUCHECK OF 114, NO COVERAGE NEEDED.
--- NOTE | 2020-02-27 12:40 | NUR ---
AIR MATTRESS: Per PAYAL Nevarez, per klever Ruiz to order air mattress per patient's request. Air mattress ordered at [facility],ESTEFANIA 02/27/20 @ 1836, Reference# [id number]. [phone] if needed to follow up
--- NOTE | 2020-02-27 16:30 | NUR ---
PT TRANSFERRED ONTO NEW AIR BED FOR SKIN PROTECTION AND PT COMFORT.
--- NOTE | 2020-02-27 17:30 | NUR ---
ACCUCHECK OF 119 AND NO COVERAGE NEEDED.
--- NOTE | 2020-02-27 18:23 | NUR ---
AT BEDSIDE FOR MED POOL CHOWDHURY.
--- NOTE | 2020-02-27 19:10 | NUR ---
Opening Shift Note Received report and Assumed care of patient, awake and alert. patient currently has a chest tube to continuous suction, no crepitus or air leaks present a this time. patient is alert and oriented.
--- NOTE | 2020-02-27 19:30 | NUR ---
REPORT REPORT GIVEN TO TYLER RN. PT WITH BLEEDING NOTED FROM SKIN TEAR TO THE BACK OF HIS LEFT HAND. DRESSING CHANGED AND THERAHONEY AND NEW OPTIFOAM DRESSING APPLIED.
--- NOTE | 2020-02-27 20:15 | NUR ---
Patient repositioned Patient requested readjustment in bed patient request granted patient moved up in bed via two person move.
--- NOTE | 2020-02-27 20:45 | NUR ---
Family Communication spoke with Kaylee, updated on patient condition addressed concerns and and answered questions, requested information on medihoney used on patient skin tear, information provided.
[2020-02-27] MEDS: SENNA 8.6 MG TAB PO SCH (21:18)
--- NOTE | 2020-02-27 21:18 | NUR ---
Pain Patient c/o of Aching generalized back pain 8/10 Medication provided per MD order, will reassess in 1 hour.
--- NOTE | 2020-02-27 22:18 | NUR ---
Reassess Pain Patient pain is tolerable at 3/10 patient is laying quietly in bed without s/s of distress at this time
--- NOTE | 2020-02-27 22:52 | NUR ---
Respiratory note: PLACED PT ON BIPAP PER HIS REQUEST. PT ALSO REQUESTING MED NEB TX, GIVEN INLINE. BIPAP CONNECTED TO RED OUTLET AND O2 SOURCE. ALARMS ARE SET AND AUDIBLE AMBU BAG AND MASK AT BEDSIDE. BS ARE FINE COURSE. NO BREAKDOWN NOTED PRIOR TO PLACEMENT.
[2020-02-28] VITALS: BP 146/72
[2020-02-28] MEDS: ACCU-CHEK COMFORT CURVE STRIP VI SCH ×4 (00:13→17:58)
[2020-02-28] MEDS: INSULIN LANTUS (GLARGINE) 1 /0.01ml (100units/ml) SC SCH ×2 (00:13→21:54)
[2020-02-28] MEDS: InsuLIN REG 1unit/0.01ml Soln (100units/ml) SC SCH ×4 (00:14→17:58)
--- NOTE | 2020-02-28 00:15 | NUR ---
RT Paged RT paged patient requesting a different size bipap mask.
--- NOTE | 2020-02-28 00:30 | NUR ---
RT at bedside.
--- NOTE | 2020-02-28 00:45 | NUR ---
PT REQUESTING TO COME OFF BIPAP. PLACED ON 2LPM NC. PAYAL VAIL NOTIFIED OF CHANGE.
[2020-02-28] MEDS: ALBUTEROL SULF 2.5 MG/0.5ML(0.5%) NEB SOLN NEB SCH ×6 (02:13→22:06)
[2020-02-28] MEDS: IPRATROPIUM BROM 0.5 MG/2.5ML INH SOL NEB SCH ×6 (02:13→22:06)
[2020-02-28] MEDS: HYDROcodone-ACET 5/325MG TAB PO PRN ×4 (03:04→18:58)
--- NOTE | 2020-02-28 03:04 | NUR ---
Pain Patient c/o of Aching generalized Right back pain 8/10 Medication provided per MD order, will reassess in 1 hour.
[2020-02-28 04:00] VITALS: BP 141/88
--- NOTE | 2020-02-28 04:04 | NUR ---
Reassess Pain Patient pain is tolerable at 3/10 patient is laying quietly in bed without s/s of distress at this time
[2020-02-28 04:24] LABS: Basophils # (auto) 0.1 10 ^3/uL (0-0.2); Basophils % (auto) 0.9 % (0.0-2.0); Eosinophils # (auto) 0 10 ^3/uL (0-0.8); Hemoglobin 13.7 g/dL (13.5-17.5); Lymphocytes # (auto) 0.4 10 ^3/uL (0.4-5.4); Lymphocytes % (auto) 2.7 % (10.0-50.0); Mean Corpuscular Hgb Conc. 33.5 g/dL (32.0-36.0); Mean Corpuscular Volume 98.5 fL (80.0-100.0); Monocytes # (auto) 1.1 10 ^3/uL (0-1.3); Monocytes % (auto) 7.3 % (0.0-12.0); Neutrophils # (auto) 13.6 10 ^3/uL (1.6-8.6); Neutrophils % (auto) 89.1 % (37.0-80.0); Nucleated Red Blood Cells % 0.5 %; Platelet Count (auto) 402 10^3/uL (140-450); Red Blood Cells 4.16 10^6/uL (4.5-5.90); Red Cell Distribution Width 16.3 % (11.8-14.3); White Blood Cell 15.3 10^3/uL (4.4-10.8)
[2020-02-28 04:27] LABS: BUN/Creatinine Ratio 41.4; Calcium 8.7 mg/dL (8.5-10.1); Potassium 3.8 mmol/L (3.5-5.1)
--- NOTE | 2020-02-28 05:30 | NUR ---
Morning Care Patient received full bed bath with chg bath and soap water wash with vincent - area care and Sears care, full linen change and gown change patient tolerated process with minimal distress.
--- NOTE | 2020-02-28 07:00 | NUR ---
End Shift Note Provided shift report and endorsed care patient utilized call light many times though out the night with small request, patient requested pain medication at the 6 hour brandon consistently
[2020-02-28 08:00] VITALS: BP 144/78
--- NOTE | 2020-02-28 08:00 | NUR ---
Opening Shift Note Received pt laying in bed. alert and oriented times four. Pt complaining of pain in back. Will medicate appropriately for pain. Full assessment done, see interventions. Chest tube to right upper back with scant amount of serous fluid in the tubing. pay clerk reported no output. Sears catheter intact draining to gravity. Will continue to monitor pt closely, call light within reach.
--- NOTE | 2020-02-28 10:00 | NUR ---
MD Phoenix at bedside. New orders received.
[2020-02-28] MEDS: levoFLOXacin 750MG 150 ML IV SCH (10:10)
[2020-02-28] MEDS: DOCUSATE SOD 100 MG CAP PO SCH ×2 (10:12→21:53)
[2020-02-28] MEDS: LISINOPRIL 5 MG TAB PO SCH (10:12)
[2020-02-28] MEDS: FUROSEMIDE 20 MG TAB PO SCH (10:12)
[2020-02-28] MEDS: ENOXAPARIN SOD 40 MG/0.4 ML SYRINGE SC SCH (10:13)
[2020-02-28] MEDS: methylPREDNISolone SOD SUCC 40 MG/ML VL IV SCH ×2 (10:13→21:53)
[2020-02-28 12:00] VITALS: BP 121/69
--- NOTE | 2020-02-28 12:21 | NUR ---
Nutrition Followup Note Wt 75 kg Pt was sleeping with no family at bedside at time of rounds. Pt is with a CCHO 60g diet with a fair appetite aeb pt with an avg po intake of 61% x 2 days per Rn note. Consider ordering Glucerna 1 carton BID per Md signed order. Est energy needs 7886-6112 kcal (25-30 kcal/kg BW 64kg) Est protein needs 64-70g (1-1.1g/kg BW 64kg) Will reassess prn. Labs: BUN 29H, Alb 2.4L BM: Pt with no BM noted per Rn note Skin: Bs 16 mod risk, pt with multiple skin tears, full details in manager urgent care note PES Increased nutrient needs r/t chronic medical condition aeb pt with COPD Comments 1) Continue to monitor po intake, labs, skin 2) refer pt to [facility] on DC 3) Continue current plan of care Consider adding Glucerna 1 carton BID Consider adding MVI and Vitamin C 500 mg BID Expected Outcomes/Goals: 1) pt po intake >75% 2) pt to maintain wt while in hospital 3) f/u 3-5 days
--- NOTE | 2020-02-28 14:00 | NUR ---
MD Domingo at bedside. New orders received.
[2020-02-28] MEDS ORDERED: LACTULOSE 20Gm/30ML SOLN PO PRN (14:45)
--- NOTE | 2020-02-28 15:45 | NUR ---
Elimination Pt had small formed BM in bed cutler.
[2020-02-28 16:00] VITALS: BP 129/81
--- NOTE | 2020-02-28 18:43 | NUR ---
Elimination pt had large formed BM. Full linen change provided. Pain medication provided.
--- NOTE | 2020-02-28 19:20 | NUR ---
OPENING SHIFT RECEIVED REPORT FROM DAY SHIFT RN. ASSUMED CARE OF PATIENT. PATIENT IN BED WATCHING TV WITH NO SIGNS OR SYMPTOMS OF SOB, PAIN OR DISTRESS. CURRENTLY ON 2L 02 NASAL CANNULA, 02 SAT - 99%. LEFT UPPER ARM IV - CLEAN/DRY/INTACT. RIGHT UPPER BACK PIGTAIL CHEST TUBE - INTACT / PATENT / CONNECTED TO WALL SUCTION / SCANT DRAINAGE IN TUBING. TRAVIS HUNG TO GRAVITY. UPDATED PATIENT ON PLAN OF CARE. BED IN LOWEST POSITION, SIDE RAILS UP X2, CALL LIGHT WITHIN REACH. WILL CONTINUE TO MONITOR.
--- NOTE | 2020-02-28 19:29 | NUR ---
Report given and care endorsed to shift coordinator RN.
[2020-02-28 20:00] VITALS: BP 115/82
--- NOTE | 2020-02-28 20:40 | NUR ---
ASSISTED PATIENT ON TO BEDPAN
[2020-02-28] MEDS: SENNA 8.6 MG TAB PO SCH (21:53)
--- NOTE | 2020-02-28 22:50 | NUR ---
PM CARE PATIENT REFUSED PM CARE AND LINEN CHANGE AT THIS TIME. STATES, " WE CAN DO IT IN THE MORNING."
[2020-02-29] VITALS (7 sets, daily range): BP systolic 107–135; BP diastolic 77–84
[2020-02-29] MEDS: ACCU-CHEK COMFORT CURVE STRIP VI SCH ×4 (00:13→18:02)
[2020-02-29] MEDS: InsuLIN REG 1unit/0.01ml Soln (100units/ml) SC SCH ×4 (00:14→18:00)
[2020-02-29] MEDS: HYDROcodone-ACET 5/325MG TAB PO PRN ×4 (00:45→20:10)
[2020-02-29] MEDS: IPRATROPIUM BROM 0.5 MG/2.5ML INH SOL NEB SCH ×6 (02:12→21:36)
[2020-02-29] MEDS: ALBUTEROL SULF 2.5 MG/0.5ML(0.5%) NEB SOLN NEB SCH ×6 (02:12→21:36)
[2020-02-29 04:24] LABS: Hematocrit 41.5 % (41.0-53.0); Hemoglobin 13.8 g/dL (13.5-17.5); Mean Corpuscular Hemoglobin 33.1 pg (28.0-32.0); Mean Corpuscular Hgb Conc. 33.3 g/dL (32.0-36.0); Mean Corpuscular Volume 99.3 fL (80.0-100.0); Platelet Count (auto) 408 10^3/uL (140-450); Red Blood Cells 4.18 10^6/uL (4.5-5.90); Red Cell Distribution Width 16.6 % (11.8-14.3); White Blood Cell 17.8 10^3/uL (4.4-10.8)
[2020-02-29 04:48] LABS: Calcium 8.4 mg/dL (8.5-10.1); Potassium 4.1 mmol/L (3.5-5.1)
[2020-02-29 04:51] LABS: BUN/Creatinine Ratio 31.1
[2020-02-29 04:54] LABS: Basophils % (manual) 0 (0.0-2.0); Blast Cells 0; Eosinophils % (manual) 0 (0-7); Metamyelocytes % 0; Myelocytes % 0; Promyelocytes % 0; Reactive Lymphocytes 0
--- NOTE | 2020-02-29 05:35 | NUR ---
PATIENT REFUSED LINEN CHANGE AND CARES. CLEAN LINEN LEFT AT BEDSIDE.
[2020-02-29 06:19] LABS: Band Neutrophils % (manual) 5; Lymphocytes % (manual) 7 (10.0-50.0); Monocytes % (manual) 9 (0-12)
--- NOTE | 2020-02-29 07:28 | NUR ---
END OF SHIFT REPORT GIVEN TO DAY SHIFT RN. CARE ENDORSED.
--- NOTE | 2020-02-29 07:45 | NUR ---
OPENING SHIFT NOTE Received report from NOC RNSrikanth. Assumed care of patient. Received patient lying in bed, connected to bedside monitor with alarms in place. Patient is A&Ox4, states pain is 6/10 after recent medications, is at a tolerable level and has no s/s of distress noted. Patient with right posterior chest tube in place to -25mmHg suction with ~110ml of sanguinous drainage noted in canister. No leak noted. Patient on 3L NC with O2 sats >92%. Patient with PIV to left upper arm with TKO infusing and is patent and intact. Sears draining clear yellow UOP. Bed is in lowest position, rails x2 up and call light within reach. Updated on plan of care. Will continue to monitor.
--- NOTE | 2020-02-29 09:18 | NUR ---
T/C from Dr Valadez. Relayed recent CXR results. Awaiting Dr Terry Medellin to see patient. May downgrade to tele if chest tube is discontinued today.
--- NOTE | 2020-02-29 09:44 | NUR ---
MD Dr Terry Medellin to see patient. CT placed to H2O seal. spoke with Dr Anglin via phone. Dr Anglin to review CXR and may possibly removed chest tube today.
--- NOTE | 2020-02-29 09:46 | NUR ---
MD Dr Valadez at bedside to see patient. Updated MD on plan of care.
[2020-02-29] MEDS: levoFLOXacin 750MG 150 ML IV SCH (10:20)
[2020-02-29] MEDS: methylPREDNISolone SOD SUCC 40 MG/ML VL IV SCH ×2 (10:20→22:48)
[2020-02-29] MEDS: DOCUSATE SOD 100 MG CAP PO SCH ×2 (10:21→20:11)
[2020-02-29] MEDS: FUROSEMIDE 20 MG TAB PO SCH (10:21)
[2020-02-29] MEDS: LISINOPRIL 5 MG TAB PO SCH (10:21)
[2020-02-29] MEDS: ENOXAPARIN SOD 40 MG/0.4 ML SYRINGE SC SCH (10:22)
--- NOTE | 2020-02-29 11:59 | NUR ---
Spoke to Gabrielle Sena at [facility] [phone], and discussed that the patient may need to be placed in a facility after he is discharged from the hospital because the doesn't feel that she can take care of the patient at home. Gabrielle SENA states she will call the and see if she wants the patient placed in a SNF or termite exterminator placement.
--- NOTE | 2020-02-29 14:28 | NUR ---
This is 79 y/o, male, patient cognitive abilities are intact. Patient stated that prior to admission to [facility] patient was ambulated with a walker with additional personal assistant from his . Patient stated since he has SOB, patient need the assistance of his to assist him with all ADLs. Patient stated that he uses a walker and wheelchair at home. Patient stated that he has plan on returning home to his post discharge. Patient ask for SW to continue conversation with about his care. Patient (Josep) states that she does all ADLs for her daily. Patient stated that she is feeling overwhelmed of the care that she must do for her . Patient stated that when her ambulates with walker, she must walk behind him with a wheelchair to prevent him from falling backwards. Patient indicated that patient had fallen one-time last year. Discharge planning: SW discuss with patient and about home health services. Patient is receptive for home health services and SNF for rehabilitation. CM will call patient to discuss the possibility for placing patient into a SNF for rehabilitation. Addendum: 02/29/20 at 1429 by ANASTACIA ESPINOZA Amended: Links added.
--- NOTE | 2020-02-29 16:15 | NUR ---
RADIOLOGY Patient to radiology for chest tube removal by Dr Anglin on portable monitor and oxygen accompanied by PAYAL Saldana.
--- NOTE | 2020-02-29 17:00 | NUR ---
RADIOLOGY Patient returned from radiology. Chest tube removed. Patient can be downgraded to telemetry per previous conversation with Dr Valadez.
--- NOTE | 2020-02-29 19:13 | NUR ---
END OF SHIFT NOTE Report given to NOC RN, Andressa Jacinto Endorsed care of patient.
[2020-02-29] MEDS: SENNA 8.6 MG TAB PO SCH (20:10)
[2020-02-29] MEDS: INSULIN LANTUS (GLARGINE) 1 /0.01ml (100units/ml) SC SCH (22:00)
[2020-03-01] VITALS: BP 107/77
[2020-03-01] MEDS ORDERED: ALPRAZolam 0.25 MG TAB PO ONE
[2020-03-01] MEDS: ACCU-CHEK COMFORT CURVE STRIP VI SCH ×3 (00:26→11:22)
--- NOTE | 2020-03-01 01:15 | NUR ---
PT. OFF BIPAP AND PLACED ON NASAL CANNULA AT 4L; WILL CONT. TO MONITOR.
[2020-03-01] MEDS: ALBUTEROL SULF 2.5 MG/0.5ML(0.5%) NEB SOLN NEB SCH ×4 (01:38→15:30)
[2020-03-01] MEDS: IPRATROPIUM BROM 0.5 MG/2.5ML INH SOL NEB SCH ×4 (01:38→15:30)
--- NOTE | 2020-03-01 01:38 | NUR ---
Respiratory note: PT FOUND OFF OF BIPAP AT THIS TIME. RN FAYE STATED THAT HE REQUESTED TO COME OFF AT 0115. PT IS CURRENTLY ON 3 L/M NC: HR 97, RR 25, SPO2 98%. WILL CONTINUE TO MONITOR.
[2020-03-01 04:00] VITALS: BP 128/84
[2020-03-01 06:00] VITALS: BP 117/79
[2020-03-01] MEDS: InsuLIN REG 1unit/0.01ml Soln (100units/ml) SC SCH ×3 (06:00→11:22)
--- NOTE | 2020-03-01 07:45 | NUR ---
OPENING SHIFT NOTE Received report from NOC RN, Andressa. Assumed care of patient. Received patient lying in bed, connected to bedside monitor with alarms in place. Patient is A&Ox4, denies pain and has no s/s of distress noted. PPatient on 3L NC with O2 sats >92%. Patient with PIV to left upper arm and is patent and intact. Sears draining clear yellow UOP. Bed is in lowest position, rails x2 up and call light within reach. Updated on plan of care. Will continue to monitor.
[2020-03-01 08:00] VITALS: BP 108/59
--- NOTE | 2020-03-01 08:30 | NUR ---
T/C from Dr Fuller. D/W MD about SS note about possible SNF/rehab. MD to call patient's and discuss concerns.
--- NOTE | 2020-03-01 09:58 | NUR ---
MD Dr Terry Medellin to see patient. cleared patient for discharge. Orders given to continue Prednisone, Lasix, Potassium and Nebulizers at home. aware to pending hospice eval.
--- NOTE | 2020-03-01 10:00 | NUR ---
TRANSFER Report given to PAYAL Lynch. Patient to transfer to [address] on tele box 61 and portable O2 with all personal belongings.
[2020-03-01] MEDS: methylPREDNISolone SOD SUCC 40 MG/ML VL IV SCH (10:19)
[2020-03-01] MEDS: DOCUSATE SOD 100 MG CAP PO SCH (10:20)
[2020-03-01] MEDS: FUROSEMIDE 20 MG TAB PO SCH (10:22)
[2020-03-01] MEDS: LISINOPRIL 5 MG TAB PO SCH (10:23)
[2020-03-01] MEDS: ENOXAPARIN SOD 40 MG/0.4 ML SYRINGE SC SCH (10:23)
--- NOTE | 2020-03-01 10:33 | NUR ---
Called the patient's and who gave the password. Ask her if she had a preference for the hospice that her was going to, stated no Dr. Valadez told her that he would arrange [facility] to see the patient. Stated did not know the Hospice facility it was just told to her by the MD. Addendum: 03/01/20 at 1040 by Miley Talley RN Patients's was [facility] [phone]
[2020-03-01] MEDS: levoFLOXacin 750MG 150 ML IV SCH (11:12)
[2020-03-01 13:00] VITALS: BP 118/83
[2020-03-01 13:51] VITALS: BP 116/62
--- NOTE | 2020-03-01 15:05 | NUR ---
Contacted spouse and confirmed preference for hospice. Spouse confirmed MD had spoken to her regarding hospice program and notified her that [facility] would be contacting her. Spouse states she's in agreeance with referring company and that i could contact [facility]. Contacted Megan with [facility] and faxed clinical information. Pt accepted onto hospice services with [facility] ( [phone]) and will be transported by [facility] between 3 and 3:30 pm. No further social service needs.
--- NOTE | 2020-03-01 15:42 | NUR ---
[facility] AT BEDSIDE. TRANSPORT PATIENT HOME VIA GURNEY OXYGEN IN PLACE NO SIGNS OF DISTRESS. IV REMOVED DRESSING APPLIED TO SITE TRAVIS CATHETER REMOVED. PATIENT REFUSED DC PHOTOS. HE SAID IT HURTS TO PULL THE DRESSINGS OFF AND DOES NOT WANT ME TO REMOVE THEM. REPORT GIVEN TO [facility] STAFF. NO SIGNS OF DISTRESS AT TIME OF DISCHARGE.
== END 2020-03-01 16:00 | disposition hospice, home (50) | DRG 191 ==
LOC: ER 11:22 → EDBD 11:22 → EDUNIT# 11:22 → OVERFLOW 11:23 → EAST 16:01 → WEST WING 21:04 → DOU IN ICU 02-24 14:13 → TELE-WESTW 03-01 10:30
PROVIDERS: ADMIT Internal Medicine; ATTEND Internal Medicine
PROC: 5A09457 Assistance with Respiratory Ventilation, 24-96 Consecutive Hours, Continuous Positive Airway Pressure (ICD-10-PCS; principal; 2020-02-23)
PROC: 0W9930Z Drainage of Right Pleural Cavity with Drainage Device, Percutaneous Approach (ICD-10-PCS; 2020-02-24)
DX: J44.1 Chronic obstructive pulmonary disease with (acute) exacerbation (principal); J93.9 Pneumothorax, unspecified; J90 Pleural effusion, not elsewhere classified; J96.11 Chronic respiratory failure with hypoxia; K43.9 Ventral hernia without obstruction or gangrene; I27.21 Secondary pulmonary arterial hypertension; I27.81 Cor pulmonale (chronic); K59.00 Constipation, unspecified; Z20.828 Contact with and (suspected) exposure to other viral communicable diseases; Z85.9 Personal history of malignant neoplasm, unspecified; Z87.442 Personal history of urinary calculi; Z79.899 Other long term (current) drug therapy; Z79.01 Long term (current) use of anticoagulants; Z79.4 Long term (current) use of insulin; I12.9 Hypertensive chronic kidney disease with stage 1 through stage 4 chronic kidney disease, or unspecified chronic kidney disease; E11.22 Type 2 diabetes mellitus with diabetic chronic kidney disease; N18.9 Chronic kidney disease, unspecified; Z80.3 Family history of malignant neoplasm of breast; Z83.6 Family history of other diseases of the respiratory system; Z99.81 Dependence on supplemental oxygen
CPT/HCPCS: 10022; 36415; 36600; 51702; 71045; 76000; 76604; 76942; 80048; 80053; 81001; 82150; 82805; 82962; 83880; 84484; 85007; 85025; 85027; 85610; 85730; 87081; 87205; 87426; 89051; 93306; 94640; 94660; 96365; 96368; 96375; 99291; A4223; C1729; G0378; J0696; J1815; J1956